=== PATIENT | female | born 1950 | race Caucasian/White ===

== ENCOUNTER 2021-12-20 05:06 | Inpatient (IN) ==
--- NOTE | 2021-11-18 16:16 | PAT Medication Instructions ---
Medication Instructions Date of Service November 18, 2021 Home Medications buspirone 15 mg tablet 15 mg PO BID gabapentin 300 mg capsule 600 mg PO QAM lisinopril 10 mg tablet 10 mg PO HS pantoprazole 40 mg granules delayed-release for susp in packet 40 mg PO HS pravastatin 20 mg tablet 20 mg PO HS sertraline 100 mg tablet 100 mg PO QAM buprenorphine 7.5 mcg/hour weekly transdermal patch (Butrans) 1 patch TRANSDERMAL WK calcium carbonate 300 mg (750 mg) chewable tablet (Tums) 300 mg PO DAILY PRN celecoxib 100 mg capsule 100 mg PO QAM cholecalciferol (vitamin D3) 125 mcg (5,000 unit) tablet (Vitamin D3) 125 mcg PO HS ergocalciferol (vitamin D2) 50,000 unit tablet 50,000 unit PO WK gabapentin 300 mg capsule 900 mg PO HS multivitamin 1 tab PO HS turmeric root extract 500 mg capsule 500 mg PO HS vitamin B complex 1 tab PO HS zinc 50 mg tablet 50 mg PO HS Continue as directed buprenorphine 7.5 mcg/hour weekly transdermal patch (Butrans) 1 patch TRANSDERMAL WK (do not put on or near surgical site and check with prescribing provider that okay to continue) ergocalciferol (vitamin D2) 50,000 unit tablet 50,000 unit PO WK (do not take day of surgery) ASK your surgeon for instructions celecoxib 100 mg capsule 100 mg PO QAM STOP taking 2 weeks before surgery turmeric root extract 500 mg capsule 500 mg PO HS DO NOT take the morning of surgery calcium carbonate 300 mg (750 mg) chewable tablet (Tums) 300 mg PO DAILY PRN vitamin B complex 1 tab PO HS zinc 50 mg tablet 50 mg PO HS Take morning of surgery With a small sip of water, OTHERWISE NOTHING TO EAT OR DRINK AFTER MIDNIGHT: buspirone 15 mg tablet 15 mg PO BID gabapentin 300 mg capsule 600 mg PO QAM sertraline 100 mg tablet 100 mg PO QAM Take evening before surgery buspirone 15 mg tablet 15 mg PO BID lisinopril 10 mg tablet 10 mg PO HS pantoprazole 40 mg granules delayed-release for susp in packet 40 mg PO HS pravastatin 20 mg tablet 20 mg PO HS cholecalciferol (vitamin D3) 125 mcg (5,000 unit) tablet (Vitamin D3) 125 mcg PO HS gabapentin 300 mg capsule 900 mg PO HS multivitamin 1 tab PO HS Other Notes If you have any questions please call us at [phone] or [phone] or [phone] or [phone]
--- NOTE | 2021-11-19 09:54 | Anesthesiology Consultation ---
Date of Service November 19, 2021 Assessment & Plan (1) Encounter for pre-operative examination: - COVID screening: Per assessment on 11/18: No known COVID-19 positive contacts or current COVID-19 related symptoms. Travel screen negative. Patient vaccinate d. Surgeon arranging preop COVID testing. Awaiting results. - Medication instructions: Patient uses Butrans (buprenorphine) patch. Patient states she will discuss with PCP if continuing or holding prior to surgery. She states she will inform anesthesiologist AM MOLLY regarding ultimate decision. Chart Review Chart Review: Acceptable Risk for Surgery and Patient seen in Pre Admission Testing Teaching & Discussion Pre-Anesthesia Teaching/Discussion Notes: Instructed NPO after midnight before surgery,except medications with 15 cc of water. Medication instructions provided according to the PAT guidelines. History Surgery Operation Date: 12/20/21 07:00 Proposed Procedures p Right Total Hip Arthroplasty Anterior - Jj Briceno, Height/Weight Height: 5 ft 6 in Weight: 97.2 kg Allergies Allergy/AdvReac Type Severity Reaction Status Date / Time No Known Allergies Allergy Verified 11/18/21 10:32 Medications Home Medications Medication Instructions Recorded Confirmed Last Taken buspirone 15 mg tablet 15 mg PO BID 11/17/21 11/18/21 Unknown gabapentin 300 mg capsule 600 mg PO QAM 11/17/21 11/18/21 Unknown lisinopril 10 mg tablet 10 mg PO HS 11/17/21 11/18/21 Unknown pantoprazole 40 mg granules 40 mg PO HS 11/17/21 11/18/21 Unknown delayed-release for susp in packet pravastatin 20 mg tablet 20 mg PO HS 11/17/21 11/18/21 Unknown sertraline 100 mg tablet 100 mg PO QAM 11/17/21 11/18/21 Unknown buprenorphine 7.5 mcg/hour weekly 1 patch TRANSDERMAL WK 11/18/21 11/18/21 Unknown transdermal patch (Butrans) calcium carbonate 300 mg (750 mg) 300 mg PO DAILY PRN 11/18/21 11/18/21 Unknown chewable tablet (Tums) celecoxib 100 mg capsule 100 mg PO QAM 11/18/21 11/18/21 Unknown cholecalciferol (vitamin D3) 125 125 mcg PO HS 11/18/21 11/18/21 Unknown mcg (5,000 unit) tablet (Vitamin D3) ergocalciferol (vitamin D2) 50,000 50,000 unit PO WK 11/18/21 11/18/21 Unknown unit tablet gabapentin 300 mg capsule 900 mg PO HS 11/18/21 11/18/21 Unknown multivitamin 1 tab PO HS 11/18/21 11/18/21 Unknown turmeric root extract 500 mg 500 mg PO HS 11/18/21 11/18/21 Unknown capsule vitamin B complex 1 tab PO HS 11/18/21 11/18/21 Unknown zinc 50 mg tablet 50 mg PO HS 11/18/21 11/18/21 Unknown Past Medical History Medical History Acid reflux Depression Severe (since daughter's ) History of basal cell carcinoma (BCC) of skin Face Osteoarthritis Thyroid nodule Tremor of both hands Exercise / Class Metabolic Activity III < 4 Walking/Shop/Light housework Past Family History Family History Other No family history of adverse response to anesthesia Past Surgical History Surgical History History of basal cell carcinoma excision History of carpal tunnel surgery of left wrist History of tonsillectomy S/P thyroid biopsy Past Anesthesia History No Hx of Anesthesia Complications and No Family Hx of Anesthesia Complications History of PONV No Hx of PONV and Hx of Motion Sickness Social History Smoking Status: Never smoker Do You Dip or Chew Tobacco: No Hx Alcohol Use: Yes Alcohol type: beer alcohol intake frequency: holidays/special occasions only Hx Substance Use: No substance use type: does not use Review of Systems Patient denies chest pain, shortness of breath, fever, chills, cough, wheezing, palpitations. Physical Exam Vital Signs VITALS BP 124/77 P 52 TEMP 98.3 SP02 97%RA RESP 16 PHYSICAL Full cervical extension range of motion. Full TMJ range of motion. TMD 4 finger breaths Mallampati Score 2 Dentition: intact, upper left side crown Lungs: clear throughout to auscultation Cardiac: regular rate and rhythm, no murmurs noted Spine: normal Carotid arteries: negative bruit Extremities: no edema Short neck Lab Results Anesthesia Preop Results Results Anesthesia Widget: WBC 6.98 K/uL (4.8-10.8) 11/19/21 Hgb 11.9 g/dL (12.0-16.0) L 11/19/21 Hct 37.3 % (37-47) 11/19/21 Plt 255 K/uL (130-400) 11/19/21 Na 139 mmol/L (136-145) 11/19/21 K 4.5 mmol/L (3.5-5.1) 11/19/21 Cl 103 mmol/L (98-107) 11/19/21 CO2 30 mmol/L (21-32) 11/19/21 BUN 15 mg/dl (6-23) 11/19/21 Creat 0.57 mg/dl (0.6-1.2) L 11/19/21 Glucose Level 98 mg/dl (70-99(Fasting)) 11/19/21 PT 10.9 Seconds (9.0-12.0) 11/19/21 PTT 27.5 Seconds (21.0-31.0) 11/19/21 INR 1.0 (0.9-1.1) 11/19/21 Blood Type O Positive 11/19/21 Antibody Screen NEGATIVE 11/19/21 Testing Electrocardiogram Date: 11/19/21 SB with sinus arrhythmia at 48bpm. unconfirmed report. Chest X-Ray Date: 11/19/21 FINDINGS: The cardiac silhouette is mildly enlarged. The lungs are clear. No pleural effusions. No pneumothorax. Mild to moderate degenerative changes within the thoracic spine. IMPRESSION: Mild cardiomegaly.
--- NOTE | 2021-12-16 12:19 | History & Physical Report ---
Date of Service December 16, 2021 Assessment & Plan (1) Osteoarthritis of right hip: We will proceed with a right anterior total of arthroplasty. Postoperatively she will be started on aspirin for DVT prophylaxis and kept overnight in the hospital for postoperative medical management. She plans to have the hospital set up home health and [facility] upon discharge. History of Present Illness Chief Complaint: Osteoarthritis of the right hip. Primary Care Provider: Vince Cuadra is a pleasant 71-year-old female who has been dealing with 18-month history of increasing right hip and groin pain. She was downgraded to a cane and now she is ambulating some with the wheelchair due to her hip pain. It is affecting her quality of life. She cannot even sit without having pain in her hip. She is taking anti-inflammatories and had done activity modifications. She is really struggling with right hip.X-rays have been diagnostic for adva nced osteoarthritis of the right hip. After failing conservative treatment, she has elected proceed with a right total hip arthroplasty.. Allergies Allergy/AdvReac Type Severity Reaction Status Date / Time No Known Allergies Allergy Verified 11/18/21 10:32 Home Medications Medication Instructions Recorded Confirmed Type buspirone 15 mg tablet 15 mg PO BID 11/17/21 11/18/21 History gabapentin 300 mg capsule 600 mg PO QAM 11/17/21 11/18/21 History lisinopril 10 mg tablet 10 mg PO HS 11/17/21 11/18/21 History pantoprazole 40 mg granules 40 mg PO HS 11/17/21 11/18/21 History delayed-release for susp in packet pravastatin 20 mg tablet 20 mg PO HS 11/17/21 11/18/21 History sertraline 100 mg tablet 100 mg PO QAM 11/17/21 11/18/21 History buprenorphine 7.5 mcg/hour weekly 1 patch TRANSDERMAL WK 11/18/21 11/18/21 History transdermal patch (Butrans) calcium carbonate 300 mg (750 mg) 300 mg PO DAILY PRN 11/18/21 11/18/21 History chewable tablet (Tums) celecoxib 100 mg capsule 100 mg PO QAM 11/18/21 11/18/21 History cholecalciferol (vitamin D3) 125 125 mcg PO HS 11/18/21 11/18/21 History mcg (5,000 unit) tablet (Vitamin D3) ergocalciferol (vitamin D2) 50,000 50,000 unit PO WK 11/18/21 11/18/21 History unit tablet gabapentin 300 mg capsule 900 mg PO HS 11/18/21 11/18/21 History multivitamin 1 tab PO HS 11/18/21 11/18/21 History turmeric root extract 500 mg 500 mg PO HS 11/18/21 11/18/21 History capsule vitamin B complex 1 tab PO HS 11/18/21 11/18/21 History zinc 50 mg tablet 50 mg PO HS 11/18/21 11/18/21 History Past Med/Surg History Medical History Acid reflux Depression Severe (since daughter's ) History of basal cell carcinoma (BCC) of skin Face Osteoarthritis Thyroid nodule Tremor of both hands Surgical History History of basal cell carcinoma excision History of carpal tunnel surgery of left wrist History of tonsillectomy S/P thyroid biopsy Family History Other No family history of adverse response to anesthesia Social History Smoking Status: Never smoker Second Hand Exposure: No; Hx Alcohol Use: Yes Alcohol type: beer Hx Substance Use: No Preferred Language: Vietnamese Communication Ability: Effective 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 Physical Exam On physical examination of the right hip, she has trouble lying flat. She has extremely limited range of motion of her right hip. She has pain with forced internal and external rotation. Constitutional WD/WN, vitals as above Eyes PERRL, conjunctivae normal, anicteric sclerae ENMT external ear and nose normal, oropharynx normal Neck trachea midline, no thyromegaly Respiratory normal respiratory effort Cardiovascular RRR, no murmur, no edema Gastrointestinal (Abdomen) normal bowel sounds, soft, nontender, no hepatosplenomegaly Psychiatric A+Ox3, euthymic affect Results & Data Results & Data Laboratory Results . Diagnostic Findings X-rays of the right hip and pelvis show advanced osteoarthritis with joint space narrowing, osteophyte formation, and [id number] articulation.. PG Care Time/CCT Total # of Minutes Spent Total Time Spent with Patient: Total time spent is greater than 50% in coordination of care (as documented) at patient's floor/unit and/or counseling patient: Coding Level of Care Code None Diagnoses Osteoarthritis of right hip M16.11
[2021-12-20] MEDS ORDERED: TRANEXAMIC ACID 1,000 MG **IV Intra-op IV SCH (06:00)
[2021-12-20] MEDS ORDERED: ceFAZolin 2000MG 2,000 MG/15 ML SYR IV SCH (06:00)
[2021-12-20] MEDS ORDERED: FAMOTIDINE 20 MG TAB PO SCH (06:00)
[2021-12-20] MEDS ORDERED: GABAPENTIN 300 MG CAP PO SCH (06:00)
[2021-12-20] MEDS ORDERED: LR 500ML BOLUS, THEN 15ML/HR IV SCH (06:00)
[2021-12-20] MEDS ORDERED: ACETAMINOPHEN 500 MG TAB PO SCH (06:00)
[2021-12-20] MEDS ORDERED: CeleBREX 200 MG CAP PO SCH (06:00)
[2021-12-20] MEDS ORDERED: TRANEXAMIC ACID 1,000 MG **IV Pre-op IV SCH (06:00)
[2021-12-20] MEDS ORDERED: METOCLOPRAMIDE HCL 10 MG TABLET PO SCH (06:00)
[2021-12-20] MEDS ORDERED: LR 60ML/HR IV SCH (06:00)
[2021-12-20] MEDS ORDERED: Ketorolac (*for OR use only*) 30 MG, dexAMETHasone 4 MG, KETAMINE HCL (**OR use only) 1... INFIL SCH (06:00)
[2021-12-20] MEDS ORDERED: BUPIVACAINE 0.5 % 5 MG/1 ML PF 10ML VIAL ONE (06:22)
[2021-12-20] MEDS ORDERED: ORTHO JOINT ANESTHETIC ONE (06:33)
[2021-12-20] MEDS ORDERED: MIDAZOLAM HCL 1 MG/ML 2ML VIAL ONE ×3 (06:41→08:01)
[2021-12-20] MEDS ORDERED: LIDOCAINE 2% 2 ML VIAL/AMP(20MG/ML) INFIL ONE (06:41)
[2021-12-20] MEDS ORDERED: PROPOFOL IV EMULSION 10 MG/ML 20 ML VIAL IV ONE (06:41)
--- NOTE | 2021-12-20 06:50 | History & Physical Bridge Note ---
Date of Service December 20, 2021 History & Physical Bridge Note I have examined the patient, reviewed the History & Physical and in the interval since the performance of the History & Physical I have noted the following changes of clinical significance: no changes noted
[2021-12-20] MEDS ORDERED: ONDANSETRON INJ 2 MG/ML 2 ML VIAL IV PRN ×2 (06:56→09:31)
[2021-12-20] MEDS ORDERED: PROMETHAZINE HCL 6.25 MG in SODIUM CHLORIDE 0.9% 50 ML IV PRN (06:56)
[2021-12-20] MEDS ORDERED: PHENYLEPHRINE 100MCG/ML 5ML SYR IV PRN (06:56)
[2021-12-20] MEDS ORDERED: ATROPINE SULFATE 0.1 MG/ML 10ML SYR IV PRN (06:56)
[2021-12-20] MEDS ORDERED: HYDROmorphone INJ 1 MG/ML SYRINGE IV PRN (06:56)
[2021-12-20] MEDS ORDERED: ePHEDrine sulfate 50 MG/ML AMP IV PRN (06:56)
[2021-12-20] MEDS ORDERED: fentaNYL citrate 100 MCG/2 ML VIAL ONE (07:20)
[2021-12-20] MEDS ORDERED: KETAMINE 50 MG/5 ML SYRINGE ONE (07:34)
--- NOTE | 2021-12-20 08:28 | Operative Report ---
PG Post Operative Report Pre & Post Diagnosis Operation Date: 12/20/21 07:00 Pre-Op Diagnosis: Right Hip Osteoarthritis Post-Op Diagnosis: Right Hip Osteoarthritis I identified the patient and participated in the time-out.: Yes Procedure Operation Date: 12/20/21 07:00 Actual Procedures p Right Total Hip Arthroplasty Anterior--Uncemented(Right) - Jj Briceno DO Surgeon Jj Briceno DO Critical Care Physician Assistant Jj Dumont PAC Estimated Blood Loss 200 Findings Consistent with Post-Op Diagnosis Specimens Right femoral head Complications none Disposition Disposition: Recovery Room Indications Kaur is a pleasant 71-year-old female who is been doing chronic increasing right hip and groin pain. X-rays and clinical examination are diagnostic for advanced arthritis of the right hip. After failing conservative treatment, she elected to proceed with a right total hip arthroplasty. Description of Procedure Implants used I used a [employer]immer[employer]omet total hip arthroplasty system with a size 4 standard offs et Avenir Complete stem, a 48mm G7 cup with a 25mm screw, an E1 polyethylene liner, a 32 mm ceramic head with a +7 neck. Kaur arrived at the hospital for the above procedure. She was seen in the preoperative holding area and the operative extremity was identified and signed. She was given a spinal anesthetic, a preoperative antibiotic, and TXA. She was then taken back to the operating room and laid on the table in the supine position. She was given basic sedation. The operative leg was secured to a Puristst leg positioner. The hip was then prepped and draped in sterile fashion. A timeout was done and the patient and the operative extremity was properly identified. An anterior approach was used. Dissection was taken down through the fascia and the tensor muscle belly was retracted laterally and the rectus was retracted medially. The circumflex vessels were identified and ligated. The capsule was then incised and tagged for later repair. The femoral neck was then cut and the femoral head was removed. The acetabulum was exposed. Time was spent doing a complete circumferential labral release. Sequential reaming of the acetabulum up to a size 47 reamer was done. Final reamings were done under fluoroscopy to ensure appropriate version. A Biomet 48mm G7 cup was then impacted into place. A single 25 mm screw was placed. The E1 polyethylene liner was then snapped i nto place. Surrounding soft tissues were then injected with 100 cc of an orthopedic pain control cocktail. The proximal femur was then exposed. Sequential broaching up to a size 4 broach was done. Off that broach a size 32 head with a +7 neck was trialed. The hip was reduced and fluoroscopic images showed anatomic alignment of the implants in acceptable length. The broach was removed. The final size 4 standard offset Avenir Complete stem was then impacted into place. A ceramic 32mm head with a +7 neck was then impacted onto the stem and the hip was reduced. Final fluoroscopic images showed anatomic alignment of the hip. The capsule was then closed with #1 Vicryl suture. A dilute betadyne lavage was then done for 3 minutes. The joint was then irrigated with normal saline solution. The fascia was closed with #1 PDS suture. Skin was closed with 2-0 Vicryl, luis e, and a Silverlon dressing. She was then transferred to a hospital bed and taken to the post anesthesia care unit in stable condition. She tolerated the procedure well. Jj Dumont PA-C, was present for the entire procedure. He was critical for patient positioning, prepping, draping, retraction exposure, wound closure and application of sterile dressing. I attest to the content of the Intraoperative Record and any orders documented therein. Any exceptions are noted below.
--- NOTE | 2021-12-20 09:05 | Fluoroscopy Report ---
FL hip RT 1V HISTORY: 71 years-old Female RT ANTERIOR TOTAL right hip total joint arthroplasty COMPARISON: 10/05/2021 TECHNIQUE: 2 spot fluoroscopic images of the right hip were obtained utilizing 27.0 seconds of fluoro scopy time FINDINGS: Right hip total joint arthroplasty demonstrates satisfactory alignment. No acute fracture identified. Expected postoperative soft tissue swelling with deep tissue air. No unexpected opaque foreign kraig s are identified. IMPRESSION: Right hip total joint arthroplasty with expected postoperative changes. ACT 112: Negative or not required by law. The above report was generated using voice recognition software. It may contain grammatical, syntax o r spelling errors. Electronically signed by: Ezequiel Roberts M.D. 12/20/2021 9:04 AM
--- NOTE | 2021-12-20 09:27 | XRay Report ---
XR hip 1V RT w pelvis HISTORY: 71 years-old Female IN PACU - A/P PELVIS and LATERAL HIP right hip total joint arthroplast y COMPARISON: Fluoroscopic images of the right hip of same day TECHNIQUE: AP view of the pelvis with crosstable lateral view of the right hip FINDINGS: Satisfactory alignment of the right hip total joint arthroplasty. No acute fracture or unexpected opa que foreign body identified. Overlying skin luis e are noted along with expected postoperative soft tissue swelling and deep tissue air. Mild to moderate left hip osteoarthritis. IMPRESSION: Right hip total joint arthroplasty with expected postoperative changes. ACT 112: Negative or not required by law. The above report was generated using voice recognition software. It may contain grammatical, syntax o r spelling errors. Electronically signed by: Ezequiel Roberts M.D. 12/20/2021 9:26 AM
[2021-12-20] MEDS ORDERED: bisacodyL 10 MG SUPP PR PRN (09:31)
[2021-12-20] MEDS ORDERED: HYDROmorphone INJ 0.5 MG/0.5 ML SYR IV PRN (09:31)
[2021-12-20] MEDS ORDERED: MAGNESIUM HYDROXIDE SUSP 30 ML UDC PO PRN (09:31)
[2021-12-20] MEDS ORDERED: METOCLOPRAMIDE HCL INJ 5 MG/ML 2 ML VIAL IV PRN (09:31)
[2021-12-20] MEDS ORDERED: NALOXONE HCL 0.4 MG/1 ML VIAL/CARP IV PRN (09:31)
[2021-12-20] MEDS: SODIUM CHLORIDE 0.9% 1000ML 1,000 ML IV SCH ×2 (10:08→19:51)
--- NOTE | 2021-12-20 11:21 | Anesthesiology Progress Note ---
Date of Service December 20, 2021 Anesthesia Post Procedure Vital Signs Vital Signs: Temp Pulse Pulse Resp BP Pulse Ox 12/20/21 10:33 37.3 C 52 L 16 109/71 94 12/20/21 10:00 36.4 C L 48 L 17 106/71 93 12/20/21 09:30 36.4 C L 49 L 17 100/57 L 99 12/20/21 09:10 36.3 C L 56 L 14 129/58 L 98 12/20/21 09:00 56 L 14 102/68 100 12/20/21 08:50 68 18 110/61 100 12/20/21 08:44 36.1 C L 77 18 104/65 100 12/20/21 05:50 37.5 C 66 20 160/85 H 20 L Pain Intensity Right Hip: Pain Intensity: 7 Transfer of Care Handoff Completed per policy Notes Mental Status: alert / awake / arousable Patient Amnestic to Procedure: Yes Nausea / Vomiting: adequately controlled Pain: adequately controlled Airway Patency, RR, SpO2: stable & adequate BP & HR: stable & adequate Hydration State: stable & adequate Neuraxial Anesthesia: was administered and sensory block is resolving Anesthetic Complications: no major complications apparent
[2021-12-20] MEDS ORDERED: BUPRENORPHINE 5 MCG/HR TDSY TD SCH (11:30)
[2021-12-20] MEDS ORDERED: dexAMETHasone 4 MG TAB PO ONE (11:30)
[2021-12-20] MEDS: KETOROLAC TROMETHAMINE 15 MG/ML VIAL IV SCH ×3 (11:59→21:48)
[2021-12-20] MEDS: busPIRone 15 MG TAB PO SCH ×2 (12:24→20:02)
[2021-12-20] MEDS: SERTRALINE HCL 100 MG TABLET PO SCH (12:24)
[2021-12-20] MEDS: DOCUSATE SODIUM 100 MG CAP PO SCH ×2 (12:24→20:02)
[2021-12-20] MEDS: ASPIRIN 81 MG ECTAB PO SCH ×2 (12:24→20:02)
[2021-12-20] MEDS: MULTIVITAMIN TAB PO SCH (12:24)
[2021-12-20] MEDS: ACETAMINOPHEN 500 MG TAB PO SCH ×2 (14:36→22:24)
[2021-12-20] MEDS ORDERED: [UNRECOGNIZED DRUG - REMARK] SCH (16:00)
[2021-12-20] MEDS: ceFAZolin 2000MG 2,000 MG/15 ML SYR IV SCH ×2 (16:00→22:25)
[2021-12-20] MEDS: lisinopril 10 MG TAB PO SCH (20:03)
[2021-12-20] MEDS: GABAPENTIN 300 MG CAP PO SCH (20:03)
[2021-12-20] MEDS: PRAVASTATIN SOD 20 MG TAB PO SCH (20:04)
[2021-12-20] MEDS: SENNA 8.6 MG TAB PO SCH (20:04)
[2021-12-21] MEDS: KETOROLAC TROMETHAMINE 15 MG/ML VIAL IV SCH ×4 (03:20→21:39)
[2021-12-21] MEDS: ACETAMINOPHEN 500 MG TAB PO SCH ×3 (05:53→22:54)
[2021-12-21] MEDS: SODIUM CHLORIDE 0.9% 1000ML 1,000 ML IV SCH (06:23)
--- NOTE | 2021-12-21 06:28 | Orthopedic Progress Note ---
Date of Service December 21, 2021 Assessment & Plan (1) Status post right hip replacement: Overall she is doing very well. She is not having too much pain in the right hip. She is on aspirin for DVT prophylaxis. She will be seen by physical therapy today for ambulation and range of motion exercises. We will keep her in the hospital today for pain control and strengthening. We will plan to discharge her to home tomorrow. Harriet Dietrich was seen and examined at bedside this morning. Overall she is doing very well. She is not having too much pain in the right hip. She has been up and ambulating to the bathroom. She has no complaints.. Review of Systems All systems reviewed & are unremarkable except as noted in HPI & below. Physical Exam On physical examination of the right hip, the dressing is clean and dry. Her leg lengths are equal. She has active dorsiflexion plantarflexion of her right ankle.. Results & Data Results & Data Laboratory Results . Diagnostic Findings Postoperative x-rays of the right hip show the prosthesis to be in anatomic alignment without any evidence of fracture, desiccation, or loosening. PG Care Time/CCT Total # of Minutes Spent Total Time Spent with Patient: Total time spent is greater than 50% in coordination of care (as documented) at patient's floor/unit and/or counseling patient: Coding Level of Care Code 21356 Post Operative Follow-Up Diagnoses Status post right hip replacement Z96.641
[2021-12-21] MEDS: MULTIVITAMIN TAB PO SCH (08:28)
[2021-12-21] MEDS: SERTRALINE HCL 100 MG TABLET PO SCH (08:28)
[2021-12-21] MEDS: ASPIRIN 81 MG ECTAB PO SCH ×2 (08:29→20:29)
[2021-12-21] MEDS: GABAPENTIN 300 MG CAP PO SCH ×2 (08:29→20:29)
[2021-12-21] MEDS: DOCUSATE SODIUM 100 MG CAP PO SCH ×2 (08:29→20:29)
[2021-12-21] MEDS: busPIRone 15 MG TAB PO SCH ×2 (08:29→20:29)
[2021-12-21] MEDS: oxyCODONE HCL IR 5 MG TAB (IMMEDIATE RELEASE) PO PRN (19:29)
[2021-12-21] MEDS: SENNA 8.6 MG TAB PO SCH (20:29)
[2021-12-21] MEDS: lisinopril 10 MG TAB PO SCH (20:29)
[2021-12-21] MEDS: PRAVASTATIN SOD 20 MG TAB PO SCH (20:29)
[2021-12-22] MEDS: KETOROLAC TROMETHAMINE 15 MG/ML VIAL IV SCH (03:41)
[2021-12-22] MEDS: ACETAMINOPHEN 500 MG TAB PO SCH ×3 (05:52→21:24)
--- NOTE | 2021-12-22 06:30 | Orthopedic Progress Note ---
Date of Service December 22, 2021 Assessment & Plan (1) Status post right hip replacement: Overall she is doing fairly well. She is having too much pain in the right hip. She will be seen by physical therapy again today for ambulation and range of motion exercises. She is on aspirin for DVT prophylaxis. She can be discharged home later today. She will follow-up with orthopedics in 2 weeks. Harriet Dietrich was seen and examined at bedside this morning. Overall she is doing fairly well. She worked well yesterday with physical therapy. She has a little bit of soreness in her hip but is not too bad. She has no other complaints. . Review of Systems All systems reviewed & are unremarkable except as noted in HPI & below. Physical Exam On physical examination of the right hip, the dressing is mostly clean and dry. Her ligaments are equal. She has some swelling around the right hip that is to be expected. . Results & Data Results & Data Laboratory Results . Diagnostic Findings . PG Care Time/CCT Total # of Minutes Spent Total Time Spent with Patient: Total time spent is greater than 50% in coordination of care (as documented) at patient's floor/unit and/or counseling patient: Coding Level of Care Code 77489 Post Operative Follow-Up Diagnoses Status post right hip replacement Z96.641
--- NOTE | 2021-12-22 06:33 | Discharge Summary ---
Date of Service December 22, 2021 Admission HPI (Per Admitting) Venecia is a pleasant 71-year-old female who has been dealing with 18-month history of increasing right hip and groin pain. She was downgraded to a cane and now she is ambulating some with the wheelchair due to her hip pain. It is affecting her quality of life. She cannot even sit without having pain in her hip. She is taking anti-inflammatories and had done activity modifications. She is really struggling with right hip.X-rays have been diagnostic for advanced osteoarthritis of the right hip. After failing conservative treatment, she has elected proceed with a right total hip arthroplasty.. Admission Exam (Per Admitting) On physical examination of the right hip, she has trouble lying flat. She has extremely limited range of motion of her right hip. She has pain with forced internal and external rotation. Principal Diagnosis Same as "Discharge Diagnosis" noted below under Discharge Instructions. Discharge Exam On physical examination of the right hip, the dressing is mostly clean and dry. Her ligaments are equal. She has some swelling around the right hip that is to be expected. . Discharge Data Procedures Performed Operation Date: 12/20/21 07:00 Actual Procedures p Right Total Hip Arthroplasty Anterior--Uncemented(Right) - Jj Briceno DO Ordered Studies 12/20/21 07:00 FL hip RT 1V Routine Hospital Course (1) Status post right hip replacement: On December 20, 2021 Kaur arrived at [facility] and underwent a right hip replacement without complication. She had a spinal anesthetic. Postoperatively she was started on aspirin for DVT prophylaxis and transferred to the general orthopedic floors. Her hospital course was uneventful. On postop day #1, her vital signs were stable and her pain was well controlled. She was able to participate well with physical therapy doing ambulation and range of motion exercises. On postop day #2, she continued to do well. She was seen once again by physical therapy. She was then discharged home. She will follow-up with orthopedics in 2 weeks. PG Care Time/CCT Total # of Minutes Spent Total Time Spent with Patient: Total time spent is greater than 50% in coordination of care (as documented) at patient's floor/unit and/or counseling patient: Discharge Plan Discharge Items Patient Disposition: Home - Home Health Services Reason For Visit: Right Hip Degenerative Joint Disease Discharge Diagnosis: Right hip replacement Activity: Per Instructions section Non-emergency contact: Surgeon Call non-emergency contact if: your wound has increased redness and your wound has increased drainage Follow-up/Referrals: Vince Lynch DO [Primary Care Provider] - Diet: Regular Addtl Attending Provider Instructions: Activity and Therapy Recommendations: * If you are using [facility] then therapy will be provided at your home until they feel you have accomplished all of your goals. * If you are using [facility] then Physical Therapy will be provided until they feel you are ready to start Outpatient Physical Therapy. * If you are not using home therapy then Outpatient Physical Therapy should start about 3-5 days from your day of surgery. Therapy will last about 6-10 weeks * You were shown a series of exercises in the hospital. Do these exercises three times each day including the exercises you were shown in physical therapy. * Get up and walk several times each day.~ For the first four weeks, try not to stand or walk for more than one hour at a time. If you do stand or walk for m ore than one hour, you will not hurt anything, but your leg will likely swell.~~ * As you feel comfortable, you may change from the walker or crutches to a cane and~then to independent walking. Medications: * Narcotic You will likely be sent home from the hospital with a prescription for the narcotic pain medication that worked best throughout your stay. * Aspirin Most patients will be required to take Aspirin 81mg twice a day for 6 weeks after surgery. This is obtained [id number] and a prescription is not necessary. * Other medications may be prescribed for specific circumstances. If you have any questions, please call the office at . * Resume previous home medications unless otherwise instructed TEDs/Elastic Stockings: The white elastic stockings help limit swelling and prevent blood clots from forming in your legs. The more you wear them, the more they work. Wear them for six weeks. Dressing Care: Leave the Silverlon dressing in place for 7 days. After 7 days you may remove the dressing. If the incision is not draining then you may leave the luis e open to air. If there is a little bit of drainage or if the luis e are getting stuck on your clothing then cover the incision with a dry dressing. The luis e will be removed at your 2 week follow-up appointment. Showering: You may shower with the Silverlon dressing in place. Do not let the shower spray hit the dressing directly. Pat the Silverlon dressing dry. If the dressing becomes wet underneath, then simply remove the dressing. Keep the incision dry until you are 7 days out from the day of surgery. After 7 days you may remove the Silverlon dressing and shower with the luis e exposed. Let soapy water run over the luis e and pat them dry. Do not scrub or soak the incision. Things To Watch For: * Drainage from the incision site that occurs more than one week after your surgery. * Increased redness at the incision site. * Fever above 102 degrees Fahrenheit. * Unusual chest pain or shortness of breath. * Call [facility] at with any of the above problems Follow-Up Visit: Follow-up with Dr. Briceno's PA (Jj Dumont) 2-3 weeks after your day of surgery. He will remove your luis e and answer any questions. If you have any additional questions or concerns, Dr Briceno is usually in the office at the same time and will be available An appointment was probably scheduled when you signed-up for surgery in the office. If you have any questions call Office Instructions: More detailed instructions as well as Frequently Asked Questions were provided in a folder by our office when you signed-up for surgery. Please review these instructions when you get home. If you have any further questions or concerns, please feel free to call the office at [phone] Pending Studies at Discharge: No Stand-Alone Forms: My [facility] Medications and DC Order Prescriptions: New oxycodone-acetaminophen 5-325 mg tablet 1 tab PO Q6H PRN (Reason: pain) Qty: 30 RF: 0 aspirin 81 mg Tablet,Delayed Release (Dr/Ec) 81 mg PO BID 42 Days Qty: 0 RF: 0 Continued pantoprazole [address] for susp in packet 40 mg PO HS RF: 0 pravastatin 20 mg tablet 20 mg PO HS RF: 0 lisinopril 10 mg tablet 10 mg PO HS RF: 0 sertraline 100 mg tablet 100 mg PO QAM RF: 0 buspirone 15 mg tablet 15 mg PO BID RF: 0 gabapentin 300 mg capsule 600 mg PO QAM RF: 0 gabapentin 300 mg Capsule 900 mg PO HS RF: 0 buprenorphine [Butrans] 7.5 mcg/hour Patch Weekly 1 patch TRANSDERMAL WK RF: 0 celecoxib 100 mg Capsule 100 mg PO QAM RF: 0 multivitamin Tablet 1 tab PO HS RF: 0 vitamin B complex [Super B Complex] Tablet 1 tab PO HS RF: 0 zinc 50 mg Tablet 50 mg PO HS RF: 0 cholecalciferol (vitamin D3) [Vitamin D3] 125 mcg (5,000 unit) Tablet 125 mcg PO HS RF: 0 turmeric root extract 500 mg Capsule 500 mg PO HS RF: 0 ergocalciferol (vitamin D2) 50,000 unit Tablet 50,000 unit PO WK RF: 0 calcium carbonate [Tums] 300 mg (750 mg) Tablet,Chewable 300 mg PO DAILY PRN (Reason: Acid Reflux) RF: 0 Discharge Orders: Discharge Order (Routine); Ordered 12/22/21 Ordered By: Jj Briceno Admission Data Admit Date/Time: 12/20/21 08:45 Attending Provider: Jj Briceno Admit Provider: Jj Briceno Primary Care Provider: Vince Lynch Other Providers: [facility],Home Health
[2021-12-22] MEDS: MULTIVITAMIN TAB PO SCH (08:36)
[2021-12-22] MEDS: GABAPENTIN 300 MG CAP PO SCH ×2 (08:37→21:25)
[2021-12-22] MEDS: DOCUSATE SODIUM 100 MG CAP PO SCH ×2 (08:37→21:25)
[2021-12-22] MEDS: SERTRALINE HCL 100 MG TABLET PO SCH (08:37)
[2021-12-22] MEDS: busPIRone 15 MG TAB PO SCH ×2 (08:37→21:24)
[2021-12-22] MEDS: ASPIRIN 81 MG ECTAB PO SCH ×2 (08:37→21:25)
[2021-12-22] MEDS: oxyCODONE HCL IR 5 MG TAB (IMMEDIATE RELEASE) PO PRN ×4 (08:41→23:55)
[2021-12-22] MEDS ORDERED: ERGOCALCIFEROL 50,000 UNITS 1250 MCG CAP PO SCH (09:00)
[2021-12-22] MEDS: lisinopril 10 MG TAB PO SCH (21:24)
[2021-12-22] MEDS: SENNA 8.6 MG TAB PO SCH (21:24)
[2021-12-22] MEDS: PRAVASTATIN SOD 20 MG TAB PO SCH (21:25)
[2021-12-23] MEDS: oxyCODONE HCL IR 5 MG TAB (IMMEDIATE RELEASE) PO PRN ×5 (04:39→22:46)
[2021-12-23] MEDS: ACETAMINOPHEN 500 MG TAB PO SCH ×3 (06:04→22:46)
[2021-12-23] MEDS: GABAPENTIN 300 MG CAP PO SCH ×2 (08:43→20:43)
[2021-12-23] MEDS: DOCUSATE SODIUM 100 MG CAP PO SCH ×2 (08:43→20:43)
[2021-12-23] MEDS: SERTRALINE HCL 100 MG TABLET PO SCH (08:43)
[2021-12-23] MEDS: MULTIVITAMIN TAB PO SCH (08:43)
[2021-12-23] MEDS: busPIRone 15 MG TAB PO SCH ×2 (08:43→20:44)
[2021-12-23] MEDS: ASPIRIN 81 MG ECTAB PO SCH ×2 (08:43→20:45)
--- NOTE | 2021-12-23 13:19 | Orthopedic Progress Note ---
Date of Service December 23, 2021 Assessment & Plan (1) Status post right hip replacement: She seems to be doing fairly well with the hip. She is participating well with physical therapy. She is on aspirin for DVT prophylaxis. Unfortunate she has an unstable home life and she does not feel comfortable returning home at this time. She will be having some family help out coming tomorrow. She will feel much more comfortable going home tomorrow. I think that is reasonable. We will keep her an extra day today to make sure she is safe. Harriet Dietrich was seen and examined at bedside this morning. She is doing a little bit better today than she was yesterday. She has been working well with physical therapy. She still has pain in the hip. She is very concerned about going home. Review of Systems All systems reviewed & are unremarkable except as noted in HPI & below. Physical Exam On physical examination the right hip, the dressing is clean and dry. Her leg lengths are equal. She has active dorsiflexion plantarflexion of her right ankle.. Results & Data Results & Data Laboratory Results . Diagnostic Findings . PG Care Time/CCT Total # of Minutes Spent Total Time Spent with Patient: Total time spent is greater than 50% in coordination of care (as documented) at patient's floor/unit and/or counseling patient: Coding Level of Care Code 35043 Post Operative Follow-Up Diagnoses Status post right hip replacement Z96.641
[2021-12-23] MEDS: lisinopril 10 MG TAB PO SCH (20:43)
[2021-12-23] MEDS: SENNA 8.6 MG TAB PO SCH (20:43)
[2021-12-23] MEDS: PRAVASTATIN SOD 20 MG TAB PO SCH (20:45)
[2021-12-24] MEDS: ACETAMINOPHEN 500 MG TAB PO SCH ×2 (05:44→13:34)
[2021-12-24] MEDS: oxyCODONE HCL IR 5 MG TAB (IMMEDIATE RELEASE) PO PRN ×3 (05:44→15:38)
[2021-12-24] MEDS: SERTRALINE HCL 100 MG TABLET PO SCH (09:05)
[2021-12-24] MEDS: MULTIVITAMIN TAB PO SCH (09:05)
[2021-12-24] MEDS: DOCUSATE SODIUM 100 MG CAP PO SCH (09:05)
[2021-12-24] MEDS: ASPIRIN 81 MG ECTAB PO SCH (09:05)
[2021-12-24] MEDS: GABAPENTIN 300 MG CAP PO SCH (09:05)
[2021-12-24] MEDS: busPIRone 15 MG TAB PO SCH (09:05)
--- NOTE | 2021-12-24 15:21 | Orthopedic Progress Note ---
Date of Service December 24, 2021 Assessment & Plan (1) Status post right hip replacement: Overall she is doing much better. She is not having as much pain in the right hip. She can be discharged home today. She is on aspirin for DVT prophylaxis. Harriet Dietrich was seen and examined at bedside this morning. Overall she is doing much better. She not having as much pain in her hip. She has been working well with therapy. She like to go home today. Review of Systems All systems reviewed & are unremarkable except as noted in HPI & below. Physical Exam On physical examination the right hip, the dressing is clean and dry and her leg lengths are equal.. Results & Data Results & Data Laboratory Results . Diagnostic Findings . PG Care Time/CCT Total # of Minutes Spent Total Time Spent with Patient: Total time spent is greater than 50% in coordination of care (as documented) at patient's floor/unit and/or counseling patient: Coding Level of Care Code 60738 Post Operative Follow-Up Diagnoses Status post right hip replacement Z96.641
[2021-12-27] MEDS ORDERED: REMOVE BUTRANS PATCH SCH (11:29)
== END 2021-12-24 16:44 | disposition home health service (06) | DRG 470 ==
LOC: ASU 05:06 → 3W 05:06

== ENCOUNTER 2022-05-06 09:46 | Inpatient (IN) ==
--- NOTE | 2022-04-19 10:55 | PAT Medication Instructions ---
Medication Instructions Date of Service April 19, 2022 Home Medications Medication Instructions Recorded oxycodone-acetaminophen 5 mg-325 1 tab PO Q6H PRN pain #30 tabs 12/22/ mg tablet oxycodone-acetaminophen 5 mg-325 1 tab PO Q6H PRN pain #60 tabs 02/02/ mg tablet (Percocet) buspirone 15 mg tablet 15 mg PO QAM lisinopril 10 mg tablet 10 mg PO HS pantoprazole 40 mg granules delayed-release for susp in packet 40 mg PO HS pravastatin 20 mg tablet 20 mg PO HS sertraline 100 mg tablet 100 mg PO QAM calcium carbonate 300 mg (750 mg) chewable tablet (Tums) 300 mg PO DAILY PRN celecoxib 100 mg capsule 100 mg PO QAM multivitamin 1 tab PO HS turmeric root extract 500 mg capsule 500 mg PO HS vitamin B complex 1 tab PO HS zinc 50 mg tablet 50 mg PO HS oxycodone-acetaminophen 5 mg-325 mg tablet 1 tab PO Q6H PRN oxycodone-acetaminophen 5 mg-325 mg tablet (Percocet) 1 tab PO Q6H PRN gabapentin 300 mg tablet 300 mg PO TID ASK your surgeon for instructions celecoxib 100 mg capsule 100 mg PO QAM STOP taking 2 weeks before surgery turmeric root extract 500 mg capsule 500 mg PO HS DO NOT take the morning of surgery calcium carbonate 300 mg (750 mg) chewable tablet (Tums) 300 mg PO DAILY PRN Take morning of surgery With a small sip of water, OTHERWISE NOTHING TO EAT OR DRINK AFTER MIDNIGHT: buspirone 15 mg tablet 15 mg PO QAM sertraline 100 mg tablet 100 mg PO QAM oxycodone-acetaminophen 5 mg-325 mg tablet 1 tab PO Q6H PRN(if needed) oxycodone-acetaminophen 5 mg-325 mg tablet (Percocet) 1 tab PO Q6H PRN(if needed) gabapentin 300 mg tablet 300 mg PO TID Take evening before surgery lisinopril 10 mg tablet 10 mg PO HS pantoprazole 40 mg granules delayed-release for susp in packet 40 mg PO HS pravastatin 20 mg tablet 20 mg PO HS multivitamin 1 tab PO HS vitamin B complex 1 tab PO HS zinc 50 mg tablet 50 mg PO HS oxycodone-acetaminophen 5 mg-325 mg tablet 1 tab PO Q6H PRN(if needed) oxycodone-acetaminophen 5 mg-325 mg tablet (Percocet) 1 tab PO Q6H PRN(if needed) gabapentin 300 mg tablet 300 mg PO TID Other Notes If you have any questions please call us at [phone] or [phone] or [phone] or [phone]
--- NOTE | 2022-04-22 11:16 | Anesthesiology Consultation ---
Date of Service April 22, 2022 Assessment & Plan (1) Encounter for pre-operative examination: - COVID screening: Per assessment on 04/22: No known COVID-19 positive contacts or current COVID-19 related symptoms. Travel screen negative. Patient vaccinated. At surgeon discretion if preop Covid testing being done. - S/P Right ANDREY (12/20/21): SAB at L3-4 (x1 attempt) at [facility]. No issues noted per post-op anesthesia progress note. - Check BSG AM DOS Chart Review Chart Review: Acceptable Risk for Surgery and Patient seen in Pre Admission Testing Teaching & Discussion Pre-Anesthesia Teaching/Discussion Notes: Instructed NPO after midnight before surgery,except medications with 15 cc of water. Medication instructions provided according to the PAT guidelines. History Surgery Operation Date: 05/06/22 10:15 Proposed Procedures p L3-S1 Decompression and Fusion, Spinal Cord Monitoring - Vince Montenegro DO Height/Weight Height: 5 ft 6 in Weight: 96.8 kg Allergies Allergy/AdvReac Type Severity Reaction Status Date / Time No Known Allergies Allergy Verified 04/15/22 11:39 Medications Home Medications Medication Instructions Recorded Confirmed Last Taken buspirone 15 mg tablet 15 mg PO [facility] 11/17/21 04/15/22 12/20/21 04:45 lisinopril 10 mg tablet 10 mg PO 11/17/21 04/15/22 12/19/21 21:30 pantoprazole 40 mg granules 40 mg PO 11/17/21 04/15/22 12/19/21 21:30 delayed-release for susp in packet pravastatin 20 mg tablet 20 mg PO 11/17/21 04/15/22 12/19/21 21:30 sertraline 100 mg tablet 100 mg PO [facility] 11/17/21 04/15/22 12/20/21 04:45 calcium carbonate 300 mg (750 mg) 300 mg PO DAILY PRN Acid Reflux 11/18/21 04/15/22 Unknown chewable tablet (Tums) celecoxib 100 mg capsule 100 mg PO [facility] 11/18/21 04/15/22 12/19/21 21:30 multivitamin 1 tab PO 11/18/21 04/15/22 12/13/21 21:30 turmeric root extract 500 mg 500 mg PO 11/18/21 04/15/2222 09:00 capsule vitamin B complex 1 tab PO HS 11/18/21 04/15/22 12/13/21 21:30 zinc 50 mg tablet 50 mg PO HS 11/18/21 04/15/22 12/13/21 21:30 oxycodone-acetaminophen 5 mg-325 1 tab PO Q6H PRN pain #30 tabs 12/22/21 04/15/22 Unknown mg tablet oxycodone-acetaminophen 5 mg-325 1 tab PO Q6H PRN pain #60 tabs 02/02/22 04/15/22 Unknown mg tablet (Percocet) gabapentin 300 mg tablet 300 mg PO TID 04/15/22 04/15/22 Unknown Past Medical History Medical History Acid reflux Borderline diabetes Diet control recommended Depression Severe (since daughter's ) History of basal cell carcinoma (BCC) of skin Face Hyperlipidemia Hypertension Hypothyroidism Obesity Osteoarthritis Thyroid nodule Tremor of both hands "Nerves" Exercise / Class Metabolic Activity III < 4 Walking/Shop/Light housework Past Family History Family History Other No family history of adverse response to anesthesia Past Surgical History Surgical History History of basal cell carcinoma excision History of carpal tunnel surgery of left wrist History of right hip replacement Right ANDREY (12/20/21): SAB at L3-4 (x1 attempt) at [facility]. No issues noted per post-op anesthesia progress note. History of tonsillectomy S/P thyroid biopsy Past Anesthesia History No Hx of Anesthesia Complications and No Family Hx of Anesthesia Complications History of PONV No Hx of PONV and Hx of Motion Sickness Social History Smoking Status: Never smoker Do You Dip or Chew Tobacco: No Hx Alcohol Use: Yes Alcohol type: beer alcohol intake frequency: holidays/special occasions only Hx Substance Use: No substance use type: does not use Review of Systems Patient denies chest pain, shortness of breath, fever, chills, cough, wheezing, palpitations. Physical Exam Vital Signs VITALS BP 123/80 P 64 TEMP 98.5 SP02 95%RA RESP 16 PHYSICAL Full cervical extension range of motion. Full TMJ range of motion. TMD 3 finger breaths Mallampati Score 2 Dentition: intact, 2 caps (including upper front) Lungs: clear throughout to auscultation Cardiac: regular rate and rhythm, no murmurs noted Spine: normal Carotid arteries: negative bruit Extremities: no edema Lab Results Anesthesia Preop Results Results Anesthesia Widget: WBC 5.85 K/ul (4.8-10.8) 04/22/22 Hgb 12.1 g/dl (12.0-16.0) 04/22/22 Hct 36.3 % (34.1-44.9) 04/22/22 Plt 227 K/uL (130-400) 04/22/22 Na 139 mmol/L (136-145) 04/22/22 K 4.5 mmol/L (3.5-5.1) 04/22/22 Cl 104 mmol/L (98-107) 04/22/22 CO2 29 mmol/L (21-32) 04/22/22 BUN 15 mg/dl (6-23) 04/22/22 Creat 0.63 mg/dl (0.6-1.2) 04/22/22 Glucose Level 98 mg/dl (70-99(Fasting)) 04/22/22 PT 11.1 Seconds (9.0-12.0) 04/22/22 PTT 26.8 Seconds (21.0-31.0) 04/22/22 INR 1.0 (0.9-1.1) 04/22/22 Urine Color Yellow 04/22/22 Urine Appearance Clear (Clear) 04/22/22 Urine pH 7.0 (4.5-7.5) 04/22/22 Urine Specific [place] 1.013 (1.000-1.030) 04/22/22 Urine Protein Negative (Negative) 04/22/22 Urine Glucose (UA) Negative (Negative) 04/22/22 Urine Ketones Negative (Negative) 04/22/22 Urine Blood Negative (Negative) 04/22/22 Urine Nitrite Negative (Negative) 04/22/22 Urine Bilirubin Negative (Negative) 04/22/22 Urine Urobilinogen Negative (Negative) 04/22/22 Urine Leukocyte Esterase Negative (Negative) 04/22/22 Blood Type O Positive 04/22/22 Antibody Screen NEGATIVE 04/22/22 Testing Electrocardiogram Date: 11/19/21 SB with sinus arrhythmia at 48bpm. Otherwise normal ECG. Chest X-Ray Date: 11/19/21 FINDINGS: The cardiac silhouette is mildly enlarged. The lungs are clear. No pleural effusions. No pneumothorax. Mild to moderate degenerative changes within the thoracic spine. IMPRESSION: Mild cardiomegaly. COVID-19 Risk Screen Screening Information COVID-19 Screen Date: 04/22/22 Exposure 21 Days Family/Household +COVID Last 21 Days: No Exposure 10 Days Any COVID Exposure Last 10 Days: No Symptoms Last 10 Days Experienced COVID Sx Last 10 Days: No + COVID 0-90 Days COVID + in Last 0-90 Days: No
[~2022-05-06 09:46] MED LIST: ACETAMINOPHEN 500 MG TAB PO SCH; CeleBREX 200 MG CAP PO SCH; DEXAMETHASONE SOD INJ 4 MG/ML VIAL ONE; GABAPENTIN 300 MG CAP PO SCH; LIDOCAINE 2% MPF LOCAL 5 ML VIAL INFIL ONE; LR 15ML/HR IV SCH; MIDAZOLAM HCL 1 MG/ML 2ML VIAL ONE; PROPOFOL IV EMULSION 10 MG/ML 20 ML VIAL IV ONE; ROCURONIUM BROMIDE 10 MG/ML 5 ML VIAL IV ONE; ceFAZolin 2000MG 2,000 MG/15 ML SYR IV SCH; fentaNYL citrate 100 MCG/2 ML VIAL ONE
[2022-05-06] MEDS ORDERED: ONDANSETRON INJ 2 MG/ML 2 ML VIAL ONE (11:00)
[2022-05-06] MEDS ORDERED: ONDANSETRON INJ 2 MG/ML 2 ML VIAL IV PRN ×2 (11:32→17:54)
[2022-05-06] MEDS ORDERED: ATROPINE SULFATE 0.1 MG/ML 10ML SYR IV PRN (11:32)
[2022-05-06] MEDS ORDERED: PROMETHAZINE HCL 6.25 MG in SODIUM CHLORIDE 0.9% 50 ML IV PRN (11:32)
[2022-05-06] MEDS ORDERED: LABETALOL HCL IV 5 MG/ML 20ML IV PRN (11:32)
--- NOTE | 2022-05-06 12:18 | History & Physical Bridge Note ---
Date of Service May 06, 2022 History & Physical Bridge Note I have examined the patient, reviewed the History & Physical and in the interval since the performance of the History & Physical I have noted the following changes of clinical significance: no changes noted
--- NOTE | 2022-05-06 12:19 | History & Physical Report ---
Date of Service May 06, 2022 Assessment & Plan (1) Neurogenic claudication due to lumbar spinal stenosis: Plan: L3-S1 decompression and fusion History of Present Illness Chief Complaint: Back and bilateral leg pain Primary Care Provider: Vince Lynch This is a 71-year-old female who presents with chronic persistent back and bilateral leg pain. Failing surgical course of nonoperative care is here for surgical invention. Allergies Allergy/AdvReac Type Severity Reaction Status Date / Time No Known Allergies Allergy Verified 05/06/22 10:12 Home Medications Medication Instructions Recorded Confirmed Type buspirone 15 mg tablet 15 mg PO QA 11/17/21 05/06/22 History lisinopril 10 mg tablet 10 mg PO HS 11/17/21 05/06/22 History pantoprazole 40 mg granules 40 mg PO HS 11/17/21 05/06/22 History delayed-release for susp in packet pravastatin 20 mg tablet 20 mg PO 11/17/21 05/06/22 History sertraline 100 mg tablet (Zoloft) 100 mg PO [facility] 11/17/21 05/06/22 History calcium carbonate 300 mg (750 mg) 300 mg PO DAILY PRN Acid Reflux 11/18/21 05/06/22 History chewable tablet (Tums) celecoxib 100 mg capsule 100 mg PO QA 11/18/21 05/06/22 History multivitamin 1 tab PO HS 11/18/21 05/06/22 History turmeric root extract 500 mg 500 mg PO HS 11/18/21 05/06/22 History capsule vitamin B complex 1 tab PO HS 11/18/21 05/06/22 History zinc 50 mg tablet 50 mg PO 11/18/21 05/06/22 History oxycodone-acetaminophen 5 mg-325 1 tab PO Q6H PRN pain #60 tabs 02/02/22 05/06/22 Rx mg tablet (Percocet) gabapentin 300 mg tablet 300 mg PO TID 04/15/22 05/06/22 History Past Med/Surg History Medical History Acid reflux Borderline diabetes Diet control recommended Depression Severe (since daughter's ) History of basal cell carcinoma (BCC) of skin Face Hyperlipidemia Hypertension Hypothyroidism Obesity Osteoarthritis Thyroid nodule Tremor of both hands "Nerves" Surgical History History of basal cell carcinoma excision History of carpal tunnel surgery of left wrist History of right hip replacement Right ANDREY (12/20/21): SAB at L3-4 (x1 attempt) at [facility]. No issues noted per post-op anesthesia progress note. History of tonsillectomy S/P thyroid biopsy Family History Other No family history of adverse response to anesthesia Social History Smoking Status: Never smoker Second Hand Exposure: No; Do You Dip or Chew Tobacco: No; Tobacco Cessation Education Requested by Patient: No Hx Alcohol Use: Yes Alcohol type: beer Hx Substance Use: No Preferred Language: Vietnamese Communication Ability: Effective Lay Out Drafter Required: No Beliefs That Will Affect Care: None marital status: Unknown Current Living Situation: Family Current Living Situation Comment: LIVES W/ DAUGHTER AND GRAND CHILDREN Other Information That Helps Us Care for You: Yes (DISCUSS POSSIBLE PLACEMENT IN REHAB FACILITY @ D/C) Feels Safe at Home: Yes Safety Concerns: Feels Safe At This Time Assistive Devices: Cane and Walker Physical Exam Physical Exam: Patient is alert and oriented Heart regular rhythm Lungs clear Results & Data Results & Data ([facility]) Vital Signs (Past 12 Hours) Vital Signs Temp Pulse Resp BP Pulse Ox O2 Del Method 05/06/22 10:17 36.9 C 71 20 162/98 H 95 Room Air
[2022-05-06] MEDS ORDERED: BUPIVACAINE/EPINEPHRINE 0.25% 1:200,000 30 ML VIAL ONE (12:49)
[2022-05-06] MEDS ORDERED: ceFAZolin 330 MG/ML 1 GM VIAL ONE (12:49)
[2022-05-06] MEDS ORDERED: FLOSEAL HEMOSTATIC MATRIX 10ML TOP ONE ×2 (14:05→14:22)
[2022-05-06] MEDS ORDERED: fentaNYL citrate 100 MCG/2 ML VIAL ONE ×2 (14:33→15:12)
[2022-05-06] MEDS ORDERED: GLYCOPYRROLATE 0.2 MG/ML VIAL ONE (15:27)
[2022-05-06] MEDS ORDERED: NEOSTIGMINE METHYLSULFATE 1 MG/ML 10ML VIAL ONE (15:27)
[2022-05-06] MEDS ORDERED: PHENYLEPHRINE 100MCG/ML 5ML SYR ONE (15:27)
--- NOTE | 2022-05-06 15:36 | Operative Report ---
Post Operative Report Pre & Post Diagnosis Operation Date: 05/06/22 11:05 Pre-Op Diagnosis: Neurogenic claudication due to lumbar spinal stenosis Post-Op Diagnosis: Neurogenic claudication due to lumbar spinal stenosis I identified the patient and participated in the time-out.: Yes Procedure Operation Date: 05/06/22 11:05 Actual Procedures #1 lumbar decompression bilateral medial facetectomies and foraminotomies L3-L4, L4-5 and L5-S1 vertebra 2 posterior spinal fusion L4-L5 L5-S1. #3 placement posterior instrumentation L4-L5 L5-S1. #4 interbody fusion L4-L5 L5-S1. #5 placement of Spira 14 x 26 mm cage at L4-5 and 13 x 26 mm cage L5-S1. #6 placement locally harvested morselized autograft in the posterior gutters. #7 placement of I factor V V toss interbody space and posterior gutters. Surgeon Vince Montenegro, DO Display Director Fede Kwok Estimated Blood Loss 800 Findings See Below The patient is 5 foot 6 weighing over 97 kg with a BMI in excess of 34. This is combined with the EBL of greater than 800 cc created significant technical difficulty required deepest retractors and longer instruments. This had at least 50% increased operative time. Specimens None Indications This is a 71-year-old female who presents above-mentioned diagnosis of failed extensive course of nonoperative care she is here for surgical invention. Description of Procedure Patient was met with identified informed consent obtained. Patient was then taken to the operative suite underwent a patient placed in a prone position the Bowman table top Ab frame. All bony prominences well-padded eyes inspected to ensure no external pressure placed upon them. This point lumbar spine was prepped and draped in a normal sterile fashion. Sharp dissection with the assistance of Bovie cartilage from down to and exposing the lamina and transverse processes of L3-L4-L5 and the sacral ala bilaterally. From caudal to cephalad fashion complete laminectomy of L5 L4 partial laminectomy of L3 was performed including bilateral medial facetectomies and foraminotomies addressing severe spinal stenosis. Pedicle screws then placed in L4-L5 and S1 levels bilaterally with assistance of fluoroscopy and appropriate sized park placed. Palliative transforaminal portion left pleat discectomy of L5-S1 was performed endplates curetted to subcortical bleeding bone and a 13 x 26 mm spiral cage filled with I factor tapped in position. Then proceeded to L [address] of transforaminal approach and left complete discectomy performed endplates curetted to subcortical bleeding bone and a 14 x 26 mm spiral cage with I factor tapped in position. The rods then locked in final position bilaterally. The transverse processes of L4-L5 and sacral ala burred to subcortical bleeding bone. I factor combined with V toss and locally harvested morselized autograft was placed in the posterior gutters. 15 round JACKIE drain inserted. The incision was then closed with 1 Vicryl in the fascia 2-0 Vicryl subcutaneously and 4 Monocryl for final skin closure. Steri-Strip sterile dressings placed. Patient waken taken to PACU in stable condition. Please note spinal cord monitoring was utilized at the procedure no changes noted. Lastly Fede Kwok was present out the entire surgery and while the patient positioning complex portions of the surgery and final skin closure. I attest to the content of the Intraoperative Record and any orders documented therein. Any exceptions are noted below.
[2022-05-06] MEDS: HYDROmorphone INJ 1 MG/ML SYRINGE IV PRN ×8 (16:10→17:00)
--- NOTE | 2022-05-06 16:13 | Fluoroscopy Report ---
FL lumbar spine 2-3V CLINICAL HISTORY: DECOMPRESSION AND FUSION COMPARISON STUDY: Lumbar spine MRI March 27, 2020. FLUOROSCOPY TIME: 28 seconds. FLUOROSCOPIC IMAGES: 2 FINDINGS: Fluoroscopy was provided during discectomies with interbody spacer placement at the L4-L5 a nd L5-S1 levels. Posterior decompression is noted. There are bilateral pedicle screws at the L4, L5 a nd S1 levels. Hardware is intact. There are interconnecting rods. IMPRESSION: Fluoroscopy provided during posterior decompression and fusion, as above. ACT 112: Negative or not required by law. Electronically signed by: Molina Whitmore M.D. 05/06/2022 4:12 PM
[2022-05-06] MEDS ORDERED: ACETAMINOPHEN 1000 MG/100 ML IV IV ONE (17:10)
[2022-05-06] MEDS ORDERED: ACETAMINOPHEN 1,000 MG/100 ML VIAL IV STA (17:11)
[2022-05-06] MEDS ORDERED: ACETAMINOPHEN 1,000 MG/100 ML VIAL IV PRN (17:54)
[2022-05-06] MEDS ORDERED: ONDANSETRON 4 MG OD TAB PO PRN (17:54)
[2022-05-06] MEDS ORDERED: bisacodyL 10 MG SUPP PR PRN (17:54)
[2022-05-06] MEDS ORDERED: MAGNESIUM HYDROXIDE SUSP 30 ML UDC PO PRN (17:54)
[2022-05-06] MEDS ORDERED: diphenhydrAMINE Capsule 25 MG CAP PO PRN (17:54)
[2022-05-06] MEDS ORDERED: NALOXONE HCL 0.4 MG/1 ML VIAL/CARP IV PRN (17:54)
[2022-05-06] MEDS ORDERED: METOCLOPRAMIDE HCL INJ 5 MG/ML 2 ML VIAL IV PRN (17:54)
[2022-05-06] MEDS ORDERED: SOD PHOSPHATE/SOD BIPHOSPHATE ENEMA 132 ML BTL PR PRN (17:54)
[2022-05-06] MEDS ORDERED: ALUMINUM/MAGNESIUM SUSP 30 ML UDC PO PRN (17:54)
[2022-05-06] MEDS ORDERED: FAMOTIDINE 20 MG TAB PO PRN (17:54)
[2022-05-06] MEDS ORDERED: LORazepam 0.5 MG in SYRINGE 0 ML IV PRN (17:54)
[2022-05-06] MEDS ORDERED: hydrOXYzine HCl 25 MG TAB PO PRN (17:54)
[2022-05-06] MEDS ORDERED: HYDROmorphone INJ 0.5 MG/0.5 ML SYR IV PRN (17:54)
[2022-05-06] MEDS ORDERED: HYDROmorphone INJ 1 MG/ML SYRINGE IV PRN (17:54)
[2022-05-06] MEDS ORDERED: ACETAMINOPHEN 500 MG TAB PO PRN (17:54)
[2022-05-06] MEDS ORDERED: PROMETHAZINE HCL 12.5 MG in SODIUM CHLORIDE 0.9% 50 ML IV PRN (17:54)
[2022-05-06] MEDS ORDERED: LORazepam 0.5 MG TAB PO PRN (17:54)
[2022-05-06] MEDS ORDERED: traMADol HCL 50 MG TABLET PO PRN (17:54)
[2022-05-06] MEDS ORDERED: CALCIUM CARBONATE 500 MG CHEWABLE TAB PO PRN (18:12)
[2022-05-06] MEDS: LACTATED RINGER'S 1,000 ML IV SCH (18:30)
--- NOTE | 2022-05-06 18:56 | Anesthesiology Progress Note ---
Date of Service May 06, 2022 Anesthesia Post Procedure Vital Signs Vital Signs: Temp Pulse Pulse Resp BP Pulse Ox O2 Del Method 05/06/22 18:27 36.6 C 90 16 100/60 99 Nasal Cannula 05/06/22 17:55 36.9 C 91 H 16 94/54 L 99 Nasal Cannula 05/06/22 17:35 36.7 C 81 16 115/62 96 Nasal Cannula 05/06/22 17:25 85 14 126/67 92 Nasal Cannula 05/06/22 17:15 83 16 128/75 96 Nasal Cannula 05/06/22 17:05 86 12 92/66 L 95 Nasal Cannula 05/06/22 16:55 82 20 113/58 L 95 Nasal Cannula 05/06/22 16:45 87 17 112/80 90 Room Air 05/06/22 16:35 91 H 18 104/62 96 Room Air 05/06/22 16:25 87 20 121/79 95 Room Air 05/06/22 16:15 100 H 27 H 138/101 H 98 Oxymask 05/06/22 16:05 80 17 126/91 100 Oxymask 05/06/22 15:57 36.4 C L 98 H 12 153/89 H 100 Oxymask 05/06/22 10:17 36.9 C 71 20 162/98 H 95 Room Air O2 Flow Rate 05/06/22 18:27 2 05/06/22 17:55 3 05/06/22 17:35 3 05/06/22 17:25 3 05/06/22 17:15 3 05/06/22 17:05 3 05/06/22 16:55 3 05/06/22 16:45 05/06/22 16:35 05/06/22 16:25 05/06/22 16:15 6 05/06/22 16:05 6 05/06/22 15:57 6 05/06/22 10:17 Pain Intensity Right Leg: Pain Intensity: 8 Back: Pain Intensity: 5 Transfer of Care Handoff Completed per policy Notes Mental Status: alert / awake / arousable and participated in evaluation Patient Amnestic to Procedure: Yes Nausea / Vomiting: adequately controlled Pain: adequately controlled Airway Patency, RR, SpO2: stable & adequate BP & HR: stable & adequate Hydration State: stable & adequate Anesthetic Complications: no major complications apparent and Pt Satisfied with anesthetic care
--- NOTE | 2022-05-06 19:01 | History & Physical Report ---
Date of Service May 06, 2022 Assessment & Plan (1) S/P spinal surgery: (2) Neurogenic claudication due to lumbar spinal stenosis: Plan: Post op day# 0 S/P L4-S1 decompression and fusion by Dr Montenegro [id number] -pain management per ortho -wound management per ortho -PT/OT as appropriate -DVT prophylaxis per ortho -incentive spirometry -monitor H&H for acute blood loss anemia; preop Hgb: 12 (3) Hypertension: Plan: - Hold lisinopril and reevaluate tomorrow (4) Hyperlipidemia: Plan: - Continue pravastatin (5) Acid reflux: Plan: - Continue PPI (6) Prediabetes: Plan: - Diabetic diet (7) Depression: Plan: - Continue sertraline, buspirone DVT Prophylaxis -SCDs per ortho Disposition per primary team Follows with Dr Kiya Lynch in [place] for routine care Pt was seen and care coordinated with Dr Gant. See addendum Thank you for this consultation. We will follow the patient with you during their hospital stay. You can reach a member of the [facility]ist Team 23/01 via [employer] Admission and Anticipated Discharge Date Admission Date: May 06, 2022 History of Present Illness Primary Care Provider: Vince Lynch Patient is 71-year-old female with PMH HTN, HLD, prediabetes, GERD, depression seen in medical consultation s/p L4-S1 decompression and fusion today by Dr. Montenegro. Postop patient reports some low back pain however is controlled at rest currently. Prior to surgery reports severe back pain and bilateral lower extremity pain, right greater than left with associated paresthesias. Currently reports denies leg pain or paresthesias. Reports last BM yesterday. Has Miles catheter in place. Drinking water without any nausea or vomiting postop. Denies fever/chills, diarrhea, ELIZONDO, dizziness, vision changes, neck pain, CP, SOB, palpitations, cough, sore throat, choking, rhinorrhea, abdominal pain, extremity edema, rashes, urinary symptoms. Allergies Allergy/AdvReac Type Severity Reaction Status Date / Time No Known Allergies Allergy Verified 05/06/22 10:12 Home Medications Medication Instructions Recorded Confirmed Type buspirone 15 mg tablet 15 mg PO QAM 11/17/21 05/06/22 History lisinopril 10 mg tablet 10 mg PO HS 11/17/21 05/06/22 History pantoprazole 40 mg granules 40 mg PO HS 11/17/21 05/06/22 History delayed-release for susp in packet pravastatin 20 mg tablet 20 mg PO HS 11/17/21 05/06/22 History sertraline 100 mg tablet (Zoloft) 100 mg PO QAM 11/17/21 05/06/22 History calcium carbonate 300 mg (750 mg) 300 mg PO DAILY PRN Acid Reflux 11/18/21 05/06/22 History chewable tablet (Tums) celecoxib 100 mg capsule 100 mg PO QAM 11/18/21 05/06/22 History multivitamin 1 tab PO HS 11/18/21 05/06/22 History turmeric root extract 500 mg 500 mg PO HS 11/18/21 05/06/22 History capsule vitamin B complex 1 tab PO HS 11/18/21 05/06/22 History zinc 50 mg tablet 50 mg PO HS 11/18/21 05/06/22 History oxycodone-acetaminophen 5 mg-325 1 tab PO Q6H PRN pain #60 tabs 02/02/22 05/06/22 Rx mg tablet (Percocet) gabapentin 300 mg tablet 300 mg PO TID 04/15/22 05/06/22 History Past Med/Surg History Medical History (Updated 05/06/22 @ 19:37 by Demetra Hurd PA-C) Acid reflux Borderline diabetes Diet control recommended Depression Severe (since daughter's ) History of basal cell carcinoma (BCC) of skin Face Hyperlipidemia Hypertension Hypothyroidism Obesity Osteoarthritis Thyroid nodule Tremor of both hands "Nerves" Surgical History (Updated 05/06/22 @ 19:35 by Demetra Hurd PA-C) History of basal cell carcinoma excision History of carpal tunnel surgery of left wrist History of right hip replacement Right ANDREY (12/20/21): SAB at L3-4 (x1 attempt) at [facility]. No issues noted per post-op anesthesia progress note. History of tonsillectomy S/P thyroid biopsy Family History Other No family history of adverse response to anesthesia Social History (Updated 05/06/22 @ 19:38 by Demetra Hurd PA-C) Smoking Status: Never smoker Second Hand Exposure: No; Do You Dip or Chew Tobacco: No; Tobacco Cessation Education Requested by Patient: No Hx Alcohol Use: Yes Alcohol type: beer Hx Substance Use: No Preferred Language: Kiswahili Communication Ability: Effective Passenger Service Representative Required: No Beliefs That Will Affect Care: None marital status: Unknown Current Living Situation: Family Current Living Situation Comment: LIVES W/ DAUGHTER AND GRAND CHILDREN Other Information That Helps Us Care for You: Yes (DISCUSS POSSIBLE PLACEMENT IN REHAB FACILITY @ D/C) Feels Safe at Home: Yes Safety Concerns: Feels Safe At This Time Assistive Devices: Cane and Walker Review of Systems Review of Systems: All systems reviewed & are unremarkable except as noted in HPI & below Physical Exam Physical Exam: General: no acute distress, overweight Head: normocephalic, atraumatic Eyes: conjunctiva non-injected, anicteric ENT: normal inspection external ears, nose, mucous membranes moist Neck: supple, trachea midline Lungs: clear, no respiratory distress, no wheezing/rhonchi/rales CV: RRR, no murmur, no pretibial edema Abd: normal BS, soft, non-tender Back: +JACKIE drain in place with serosanguineous drainage Ext: no cyanosis, no calf tenderness; pedal pushes and pulls intact bilaterally, distal pulses palpable Neuro: A&O x 3, no focal deficits noted, normal affect Skin: warm, dry Results & Data Results & Data ([facility]) Vital Signs (Past 12 Hours) Vital Signs Temp Pulse Pulse Resp BP Pulse Ox O2 Del Method 05/06/22 18:27 36.6 C 90 16 100/60 99 Nasal Cannula 05/06/22 17:55 36.9 C 91 H 16 94/54 L 99 Nasal Cannula 05/06/22 17:35 36.7 C 81 16 115/62 96 Nasal Cannula 05/06/22 17:25 85 14 126/67 92 Nasal Cannula 05/06/22 17:15 83 16 128/75 96 Nasal Cannula 05/06/22 17:05 86 12 92/66 L 95 Nasal Cannula 05/06/22 16:55 82 20 113/58 L 95 Nasal Cannula 05/06/22 16:45 87 17 112/80 90 Room Air 05/06/22 16:35 91 H 18 104/62 96 Room Air 05/06/22 16:25 87 20 121/79 95 Room Air 05/06/22 16:15 100 H 27 H 138/101 H 98 Oxymask 05/06/22 16:05 80 17 126/91 100 Oxymask 05/06/22 15:57 36.4 C L 98 H 12 153/89 H 100 Oxymask 05/06/22 10:17 36.9 C 71 20 162/98 H 95 Room Air O2 Flow Rate 05/06/22 18:27 2 05/06/22 17:55 3 05/06/22 17:35 3 05/06/22 17:25 3 05/06/22 17:15 3 05/06/22 17:05 3 05/06/22 16:55 3 05/06/22 16:45 05/06/22 16:35 05/06/22 16:25 05/06/22 16:15 6 05/06/22 16:05 6 05/06/22 15:57 6 05/06/22 10:17 Code Status & VTE Plan VTE Prophylaxis Plan VTE Prophylaxis will be ordered: Yes Supervising Physician Co-Signing Physician Notes I have seen and examined the patient and have discussed the case with the provider above. I agree with the assessment and plan as stated. 71 yo F s/p back surgery today. No symptoms aside from expected incisional pain. Oriented and denies nausea, tolerating food. Slight hypotension with BP 96/60. Agree with holding antihypertensive in am. Physical exam is unremarkable. No gross neurologic deficits. LE are NVI bilaterally. Surgical site not evaluated, drain in place. Cont plan as above. Thank you for this consultation. DO Stalin
[2022-05-06] MEDS: oxyCODONE HCL IR 5 MG TAB (IMMEDIATE RELEASE) PO PRN (20:49)
[2022-05-06] MEDS: ceFAZolin 2000MG 2,000 MG/15 ML SYR IV SCH (20:49)
[2022-05-06] MEDS: VITAMIN B COMPLEX TAB PO SCH (20:49)
[2022-05-06] MEDS: DOCUSATE SODIUM/SENNA 50/8.6MG TAB PO SCH (20:49)
[2022-05-06] MEDS: GABAPENTIN 300 MG CAP PO SCH (20:50)
[2022-05-06] MEDS: PRAVASTATIN SOD 20 MG TAB PO SCH (20:50)
[2022-05-06] MEDS: PANTOprazole 40 MG TAB PO SCH (20:50)
[2022-05-06] MEDS: MULTIVITAMIN TAB PO SCH (20:50)
[2022-05-06] MEDS ORDERED: lisinopril 10 MG TAB PO SCH (21:00)
[2022-05-07] MEDS: LACTATED RINGER'S 1,000 ML IV SCH ×2 (00:38→06:31)
[2022-05-07] MEDS: ceFAZolin 2000MG 2,000 MG/15 ML SYR IV SCH (05:51)
[2022-05-07] MEDS: POLYETHYLENE (MIRALAX) 17 GM PACK PO SCH ×3 (05:51→17:24)
[2022-05-07 07:48] LABS: Basophils # (auto) 0.02 K/uL (0-0.2); Basophils % (auto) 0.2 %; Hematocrit (blood only) 26.3 % (34.1-44.9); Hemoglobin 8.7 g/dl (12.0-16.0); Immature Granulocytes # (auto) 0.05 K/uL (0.00-0.02); Immature Granulocytes % (auto) 0.4 %; Lymphocytes # (auto) 0.65 K/uL (1.2-3.4); Lymphocytes % (auto) 5.5 %; Mean Corpuscular Hemoglobin 31.2 pg (25.0-34.0); Mean Corpuscular Hgb Conc 33.1 g/dL (32.0-36.0); Mean Corpuscular Volume 94.3 fL (80.0-100.0); Mean Platelet Volume 10.8 fL (9.4-12.3); Monocytes # (auto) 0.91 K/uL (0.24-0.82); Monocytes % (auto) 7.7 %; Neutrophils % (auto) 86.2 %; Platelet Count 192 K/uL (130-400); RDW Coefficient of Variation 13.7 % (11.5-14.5); RDW Standard Deviation 47.4 fL (36.4-46.3); Red Blood Count 2.79 M/uL (3.93-5.22); White Blood Count 11.83 K/ul (4.8-10.8)
[2022-05-07] MEDS: GABAPENTIN 300 MG CAP PO SCH ×3 (08:14→20:58)
[2022-05-07] MEDS: dexAMETHasone 6 MG in SYRINGE 0 ML IV SCH (08:14)
[2022-05-07] MEDS: SERTRALINE HCL 100 MG TABLET PO SCH (08:14)
[2022-05-07] MEDS: busPIRone 15 MG TAB PO SCH (08:14)
[2022-05-07 08:50] LABS: BUN Creatinine Ratio 19.3 (10-20); Calcium 8.7 mg/dl (8.5-10.1); Creatinine Clr Calc Pharmacy 106.5 ml/min; Est GFR (African American) 108.1 ml/min; Est GFR (Non-African American) 93.3 ml/min; Potassium 4.1 mmol/L (3.5-5.1)
--- NOTE | 2022-05-07 08:57 | Orthopedic Progress Note ---
Date of Service May 07, 2022 Assessment & Plan (1) Neurogenic claudication due to lumbar spinal stenosis: Plan: We will initiate physical therapy today monitor JACKIE output hopefully discharge on Monday. Admission and Anticipated Discharge Date Admission Date: May 06, 2022 Subjective Back pain controlled leg pain markedly improved Physical Exam Physical Exam: Patient is sitting up in bed. She is comfortable. Is present to testing. Results & Data ([facility]) Vital Signs (Past 12 Hours) Vital Signs Temp Pulse Resp BP Pulse Ox O2 Del Method O2 Flow Rate 05/07/22 08:12 101/54 L 05/07/22 07:43 36.6 C 67 12 93/54 L 91 Room Air 05/07/22 04:17 36.7 C 77 18 102/65 99 Nasal Cannula 2 05/07/22 00:02 95 Nasal Cannula 2 05/06/22 23:34 36.8 C 82 16 109/67 100 Nasal Cannula 4
[2022-05-07] MEDS: oxyCODONE HCL IR 5 MG TAB (IMMEDIATE RELEASE) PO PRN ×2 (09:50→20:57)
--- NOTE | 2022-05-07 12:05 | Hospitalist Progress Note ---
Date of Service May 07, 2022 Assessment & Plan (1) S/P spinal surgery: (2) Neurogenic claudication due to lumbar spinal stenosis: Plan: S/P L4-S1 decompression and fusion by Dr Montenegro on 05/06/22 Postoperative blood loss anemia Pain control, wound care, DVT prophylaxis per Ortho Continue incentive spirometry Continue PT OT Continue bowel regimen to prevent constipation Monitor CBC (3) Hypertension: Plan: Blood pressure stable Continue to hold lisinopril (4) Hyperlipidemia: Plan: - Continue pravastatin (5) Acid reflux: Plan: - Continue PPI (6) Prediabetes: Plan: - Diabetic diet (7) Depression: Plan: - Continue sertraline, buspirone DVT Prophylaxis -SCDs per ortho Disposition per primary team Follows with Dr Kiya Lynch in [place] for routine care Thank you for this consultation. We will follow the patient with you during their hospital stay. You can reach a member of [facility] via [employer] Admission and Anticipated Discharge Date Admission Date: May 06, 2022 Subjective Patient is seen and examined at bedside Complains of pain at surgical site worsens with movement " I didn't do well with PT today" Denies any chest pain, shortness breath, dizziness Admits to being nauseous earlier today but currently resolved No other complaints Review of Systems Review of Systems: All systems reviewed & are unremarkable except as noted in Subjective Physical Exam Physical Exam: Physical Exam: Vitals signs as noted above General Appearance:Moderately built and nourished, no apparent distress Head: normocephalic, Atraumatic Eyes: normal inspection, EOMI Neck: supple, Trachea midline Respiratory/Chest: Normal breath sounds, CTA, No accessory muscle use Cardiovascular: S1, S2, No murmur Abdomen/GI:Soft, Non tender, Bowel sounds present Back: Surgical site in dressing, +drain Extremities/Musculoskeletal:normal inspection, no edema Neurologic/Psych:AAOX3, grossly no focal neurological deficits Skin: normal color, warm Results & Data Results & Data ([facility]) Vital Signs (Past 12 Hours) Vital Signs Temp Pulse Resp BP Pulse Ox O2 Del Method O2 Flow Rate 05/07/22 11:06 36.9 C 79 16 117/65 92 Room Air 05/07/22 08:12 101/54 L 05/07/22 07:43 36.6 C 67 12 93/54 L 91 Room Air 11/05/22 04:17 36.7 C 77 18 102/65 99 Nasal Cannula 2 Laboratory Results Short CBC 05/07/22 Range/Units 07:04 WBC 11.83 H (4.8-10.8) K/ul Hgb 8.7 L (12.0-16.0) g/dl Hct 26.3 L (34.1-44.9) % Plt Count 192 (130-400) K/uL BMP 05/07/22 07:04 Sodium 139 Potassium 4.1 Chloride 105 Carbon Dioxide 30 BUN 11 Creatinine 0.57 L Glucose 131 H Calcium 8.7
[2022-05-07] MEDS: PANTOprazole 40 MG TAB PO SCH (20:58)
[2022-05-07] MEDS: MULTIVITAMIN TAB PO SCH (20:58)
[2022-05-07] MEDS: PRAVASTATIN SOD 20 MG TAB PO SCH (20:59)
[2022-05-07] MEDS: DOCUSATE SODIUM/SENNA 50/8.6MG TAB PO SCH (20:59)
[2022-05-07] MEDS: VITAMIN B COMPLEX TAB PO SCH (20:59)
[2022-05-08] MEDS: POLYETHYLENE (MIRALAX) 17 GM PACK PO SCH ×3 (01:15→12:38)
[2022-05-08] MEDS: oxyCODONE HCL IR 5 MG TAB (IMMEDIATE RELEASE) PO PRN ×2 (05:24→20:42)
[2022-05-08 06:15] LABS: Hematocrit (blood only) 25.7 % (34.1-44.9); Hemoglobin 8.2 g/dl (12.0-16.0); Mean Corpuscular Hemoglobin 30.6 pg (25.0-34.0); Mean Corpuscular Hgb Conc 31.9 g/dL (32.0-36.0); Mean Corpuscular Volume 95.9 fL (80.0-100.0); Mean Platelet Volume 10.8 fL (9.4-12.3); Platelet Count 175 K/uL (130-400); RDW Coefficient of Variation 13.8 % (11.5-14.5); Red Blood Count 2.68 M/uL (3.93-5.22); White Blood Count 10.17 K/ul (4.8-10.8)
[2022-05-08 06:43] LABS: BUN Creatinine Ratio 25.5 (10-20); Creatinine Clr Calc Pharmacy 110.4 ml/min; Est GFR (African American) 109.4 ml/min; Est GFR (Non-African American) 94.4 ml/min; Potassium 3.9 mmol/L (3.5-5.1)
[2022-05-08] MEDS: busPIRone 15 MG TAB PO SCH (08:17)
[2022-05-08] MEDS: SERTRALINE HCL 100 MG TABLET PO SCH (08:17)
[2022-05-08] MEDS: dexAMETHasone 6 MG in SYRINGE 0 ML IV SCH (08:17)
[2022-05-08] MEDS: GABAPENTIN 300 MG CAP PO SCH ×3 (08:17→20:41)
--- NOTE | 2022-05-08 09:53 | Orthopedic Progress Note ---
Date of Service May 08, 2022 Assessment & Plan (1) Neurogenic claudication due to lumbar spinal stenosis: Plan: We will continue physical therapy occupational therapy today. We will have her assessed for possible rehab placement early next week. Admission and Anticipated Discharge Date Admission Date: May 06, 2022 Subjective Patient's back pain is controlled leg symptoms markedly improved Physical Exam Physical Exam: Patient is currently in bed. He is comfortable. Is constricted testing. Results & Data ([facility]) Vital Signs (Past 12 Hours) Vital Signs Temp Pulse Resp BP Pulse Ox O2 Del Method 05/08/22 08:51 36.8 C 77 18 110/67 96 Room Air
--- NOTE | 2022-05-08 14:00 | Hospitalist Progress Note ---
Date of Service May 08, 2022 Assessment & Plan (1) S/P spinal surgery: (2) Neurogenic claudication due to lumbar spinal stenosis: Plan: S/P L4-S1 decompression and fusion by Dr Montenegro on 05/06/22 Postoperative blood loss anemia Pain control, wound care, DVT prophylaxis per Ortho Continue incentive spirometry Continue PT OT Continue bowel regimen to prevent constipation Monitor CBC Will need rehab placement (3) Hypertension: Plan: Blood pressure stable Continue to hold lisinopril (4) Hyperlipidemia: Plan: - Continue pravastatin (5) Acid reflux: Plan: - Continue PPI (6) Prediabetes: Plan: - Diabetic diet (7) Depression: Plan: - Continue sertraline, buspirone DVT Prophylaxis -SCDs per ortho Disposition per primary team Follows with Dr Kiya Lynch in [place] for routine care Thank you for this consultation. We will follow the patient with you during their hospital stay. You can reach a member of the [facility] Team 23/01 via [employer] Admission and Anticipated Discharge Date Admission Date: May 06, 2022 Subjective Patient is seen and examined at bedside Had physical therapy evaluation this morning Reports back pain with activity Denies any chest pain, shortness breath, dizziness Review of Systems Review of Systems: All systems reviewed & are unremarkable except as noted in Subjective Physical Exam Physical Exam: Physical Exam: Vitals signs as noted above General Appearance:Moderately built and nourished, no apparent distress Head: normocephalic, Atraumatic Eyes: normal inspection, EOMI Neck: supple, Trachea midline Respiratory/Chest: Normal breath sounds, CTA, No accessory muscle use Cardiovascular: S1, S2, No murmur Abdomen/GI:Soft, Non tender, Bowel sounds present Back: Surgical site in dressing, +drain Extremities/Musculoskeletal:normal inspection, no edema Neurologic/Psych:AAOX3, grossly no focal neurological deficits Skin: normal color, warm Results & Data Results & Data ([facility]) Vital Signs (Past 12 Hours) Vital Signs Temp Pulse Resp BP Pulse Ox O2 Del Method 05/08/22 08:51 36.8 C 77 18 110/67 96 Room Air Laboratory Results Short CBC 05/08/22 Range/Units 05:33 WBC 10.17 (4.8-10.8) K/ul Hgb 8.2 L (12.0-16.0) g/dl Hct 25.7 L (34.1-44.9) % Plt Count 175 (130-400) K/uL BMP 05/08/22 05:33 Sodium 140 Potassium 3.9 Chloride 104 Carbon Dioxide 32 BUN 14 Creatinine 0.55 L Glucose 110 H Calcium 9.0
[2022-05-08] MEDS: PANTOprazole 40 MG TAB PO SCH (20:42)
[2022-05-08] MEDS: DOCUSATE SODIUM/SENNA 50/8.6MG TAB PO SCH (20:42)
[2022-05-08] MEDS: MULTIVITAMIN TAB PO SCH (20:42)
[2022-05-08] MEDS: VITAMIN B COMPLEX TAB PO SCH (20:42)
[2022-05-08] MEDS: PRAVASTATIN SOD 20 MG TAB PO SCH (20:43)
[2022-05-09] MEDS: oxyCODONE HCL IR 5 MG TAB (IMMEDIATE RELEASE) PO PRN ×3 (06:27→19:56)
[2022-05-09 07:15] LABS: Estimated Average Glucose 128 mg/dl; Hemoglobin A1C 6.1 % (4.5-5.6)
[2022-05-09 07:40] LABS: Hematocrit (blood only) 24.3 % (34.1-44.9); Hemoglobin 7.9 g/dl (12.0-16.0); Mean Corpuscular Hemoglobin 30.6 pg (25.0-34.0); Mean Corpuscular Hgb Conc 32.5 g/dL (32.0-36.0); Mean Corpuscular Volume 94.2 fL (80.0-100.0); Mean Platelet Volume 10.7 fL (9.4-12.3); Platelet Count 184 K/uL (130-400); RDW Coefficient of Variation 13.9 % (11.5-14.5); RDW Standard Deviation 47.4 fL (36.4-46.3); Red Blood Count 2.58 M/uL (3.93-5.22); White Blood Count 10.51 K/ul (4.8-10.8)
[2022-05-09 08:04] LABS: BUN Creatinine Ratio 24.6 (10-20); Calcium 9.2 mg/dl (8.5-10.1); Creatinine Clr Calc Pharmacy 106.5 ml/min; Est GFR (African American) 108.1 ml/min; Est GFR (Non-African American) 93.3 ml/min; Potassium 3.9 mmol/L (3.5-5.1)
[2022-05-09] MEDS: SERTRALINE HCL 100 MG TABLET PO SCH (08:48)
[2022-05-09] MEDS: dexAMETHasone 6 MG in SYRINGE 0 ML IV SCH (08:48)
[2022-05-09] MEDS: GABAPENTIN 300 MG CAP PO SCH ×3 (08:48→20:56)
[2022-05-09] MEDS: busPIRone 15 MG TAB PO SCH (08:48)
--- NOTE | 2022-05-09 11:11 | Orthopedic Progress Note ---
Date of Service May 09, 2022 Assessment & Plan (1) Neurogenic claudication due to lumbar spinal stenosis: Plan: At this time we will continue physical therapy and anticipate discharge to rehab either today or tomorrow whenever beds available. Admission and Anticipated Discharge Date Admission Date: May 06, 2022 Subjective Patient's back pain is controlled leg symptoms improved Physical Exam Physical Exam: Patient is in the chair at the bedside. She is comfortable. Is constricted testing. Results & Data ([facility]) Vital Signs (Past 12 Hours) Vital Signs Temp Pulse Resp BP Pulse Ox O2 Del Method 05/09/22 07:51 37.3 C 62 16 140/82 95 Room Air
--- NOTE | 2022-05-09 12:27 | Hospitalist Progress Note ---
Date of Service May 09, 2022 Assessment & Plan (1) S/P spinal surgery: (2) Neurogenic claudication due to lumbar spinal stenosis: Plan: S/P L4-S1 decompression and fusion by Dr Montenegro on 05/06/22 Postoperative blood loss anemia Pain control, wound care, DVT prophylaxis per Ortho Continue incentive spirometry Continue PT OT Continue bowel regimen to prevent constipation Monitor CBC Waiting for Rehab placement (3) Hypertension: Plan: Blood pressure slightly elevated Resume lisinopril (4) Hyperlipidemia: Plan: - Continue pravastatin (5) Acid reflux: Plan: - Continue PPI (6) Prediabetes: Plan: - Diabetic diet (7) Depression: Plan: - Continue sertraline, buspirone DVT Prophylaxis -SCDs per ortho Disposition per primary team Advised to follow-up with PCP upon discharge Follows with Dr Kiya Lynch in [place] for routine care Thank you for this consultation. We will follow the patient with you during their hospital stay. You can reach a member of the [facility] Team 23/01 via [employer] Admission and Anticipated Discharge Date Admission Date: May 06, 2022 Subjective Patient is seen and examined at bedside Leg neuropathic pain, urinary incontinence resolved as per patient Doing well with PT Back pain is better when compared to yesterday No new complaints Denies any chest pain, shortness breath, dizziness Review of Systems Review of Systems: All systems reviewed & are unremarkable except as noted in Subjective Physical Exam Physical Exam: Physical Exam: Vitals signs as noted above General Appearance:Moderately built and nourished, no apparent distress Head: normocephalic, Atraumatic Eyes: normal inspection, EOMI Neck: supple, Trachea midline Respiratory/Chest: Normal breath sounds, CTA, No accessory muscle use Cardiovascular: S1, S2, No murmur Abdomen/GI:Soft, Non tender, Bowel sounds present Back: Surgical site in dressing, +drain Extremities/Musculoskeletal:normal inspection, no edema Neurologic/Psych:AAOX3, grossly no focal neurological deficits Skin: normal color, warm Results & Data Results & Data ([facility]) Vital Signs (Past 12 Hours) Vital Signs Temp Pulse Resp BP Pulse Ox O2 Del Method 05/09/22 11:30 37.0 C 68 17 142/76 H 95 Room Air 05/09/22 07:51 37.3 C 62 16 140/82 95 Room Air Laboratory Results Short CBC 05/09/22 Range/Units 06:18 WBC 10.51 (4.8-10.8) K/ul Hgb 7.9 L (12.0-16.0) g/dl Hct 24.3 L (34.1-44.9) % Plt Count 184 (130-400) K/uL BMP 05/09/22 06:18 Sodium 140 Potassium 3.9 Chloride 104 Carbon Dioxide 32 BUN 14 Creatinine 0.57 L Glucose 96 Calcium 9.2
[2022-05-09] MEDS: DOCUSATE SODIUM/SENNA 50/8.6MG TAB PO SCH (20:55)
[2022-05-09] MEDS: PANTOprazole 40 MG TAB PO SCH (20:56)
[2022-05-09] MEDS: MULTIVITAMIN TAB PO SCH (20:56)
[2022-05-09] MEDS: PRAVASTATIN SOD 20 MG TAB PO SCH (20:56)
[2022-05-09] MEDS: VITAMIN B COMPLEX TAB PO SCH (20:56)
[2022-05-10] MEDS: oxyCODONE HCL IR 5 MG TAB (IMMEDIATE RELEASE) PO PRN ×2 (05:36→11:22)
--- NOTE | 2022-05-10 08:22 | Discharge Summary ---
Date of Service May 10, 2022 Admission HPI Per Admitting Provider Patient is 71-year-old female with PMH HTN, HLD, prediabetes, GERD, depression seen in medical consultation s/p L4-S1 decompression and fusion today by Dr. Montenegro. Postop patient reports some low back pain however is controlled at rest currently. Prior to surgery reports severe back pain and bilateral lower extremity pain, right greater than left with associated paresthesias. Currently reports denies leg pain or paresthesias. Reports last BM yesterday. Has Miles catheter in place. Drinking water without any nausea or vomiting postop. Denies fever/chills, diarrhea, ELIZONDO, dizziness, vision changes, neck pain, CP, SOB, palpitations, cough, sore throat, choking, rhinorrhea, abdominal pain, extremity edema, rashes, urinary symptoms. Principal Diagnosis Lumbar spinal stenosis with neurogenic claudication Discharge Data Allergies Allergy/AdvReac Type Severity Reaction Status Date / Time No Known Allergies Allergy Verified 05/06/22 10:12 Consultations 05/06/22 17:54 Consult Hospitalist Routine Procedures Performed Operation Date: 05/06/22 11:05 Actual Procedures p L3-S1 Decompression and Fusion, Spinal Cord Monitoring(Not Applicable) - Vince Montenegro DO Ordered Studies 05/06/22 11:05 FL lumbar spine 2-3V Routine Hospital Course (1) Neurogenic claudication due to lumbar spinal stenosis: Patient with lumbar decompression fusion tolerated this well was taken to orthopedic for postoperative. Postop day 1 she was up and ambulating progressed appropriately through postop day 2 and 3 socially discharged on postop day #3 to rehab. Discharge orders instructions from the chart for further review. Total Time Total Time Spent Total Time Spent (In Minutes): 20 minutes Discharge Plan Discharge Items Patient Disposition: Transfer Inpatient Rehab Fac Reason For Visit: Intervertebral Disc Disorders with Radiculopathy, Discharge Diagnosis: Lumbar spinal stenosis with spondylolisthesis and radiculopathy Activity: As commented below Non-emergency contact: Primary Care Provider Call non-emergency contact if: you have any medication questions Follow-up/Referrals: Vince Lynch DO [Primary Care Provider] - Diet: Regular Addtl Attending Provider Instructions: ACTIVITY RECOMMENDATIONS: SELF CARE INSTRUCTIONS AFTER THORACIC/LUMBAR FUSIONS 1. You may walk to your tolerance. It is good exercise for your legs and back. Expect some back and intermittent leg aches and pains. 2. You may perform "counter-top" level activities (make a sandwich, nestor with a project, etc.). 3. No bending or lifting of more than 10 pounds or back twisting of any nature (roll like a log when turning in bed). 4. You may ride in a car for 20-30 minutes at a time. No driving until after your first visit with your doctor. 5. Frequent changes of position and restricting sitting to 30 minutes at a time will help limit the amount of back spasms and stiffness you may experience. 6. You may discontinue the use of ambulatory aids (cane, crutches, etc.) once your strength and confidence allow. 7. You may gin operator the shower and let water strike your incision when you arrive home at least once daily. Do not take a tub bath, sit in a hot tub or go into a swimming pool until after your first recheck in the office. SPECIAL CARE INSTRUCTIONS: VERY IMPORTANT TO READ AND REVIEW A. Your surgical incision has been closed with a cosmetic suture under the skin that will dissolve in about 6 weeks. In 14 days, you can use a pair of clean scissors and cut the suture that is left outside of the skin at the ends of your incision. 1. The small skin tapes can be removed 7 days after surgery if they have not fallen off by that point. 2. You may keep the wound open to air as much as possible to promote healing after post-op day number 5 unless told otherwise by your doctor. 3. If you think the wound looks like it is becoming infected (redness or worsening drainage) and/or you are experiencing fever, chill or worsening back pain and muscle spasms, contact the office so that we may evaluate you as soon as possible. B. Complications are uncommon, but please contact us if you have any signs or symptoms of: 1. wound infection (fever higher than 102.5 degrees F, redness, separation of wound, drainage, or increasing pain from the incision) 2. blood clots in legs (pain, swelling, redness and warmth in legs) 3. urinary tract infection (fever higher than 102.5 degrees F, burning upon urination or increased frequency of urination) 4. nerve problems (inability to walk on your toes or heels, numbness, loss of bowel or bladder control) 5. any other symptoms that concern you C. Please call the office at if you have any concerns or questions about your operation or recovery. D. No smoking! Smoking drastically decreases the chance of a solid fusion. E. Do not take any anti-inflammatory medications (Indocin, Advil, Motrin, Aspirin, Naprosyn, etc.) as these may inhibit the chance of a solid fusion. Tylenol is okay to take for pain. MANAGING PAIN AFTER SPINAL SURGERY 1. Narcotic medication is intended for short-term use and will be provided for surgical pain. Surgical pain usually lasts for a period of 4-6 weeks. Narcotic medication includes Percocet, Vicodin, Darvocet, Tylenol #3 or Lortab. 2. Longer-term pain is more appropriately treated with non-narcotic medication such as Tylenol ES. 3. Muscle spasm is not appropriately treated with narcotics. Muscle relaxers such as Soma, Flexeril or Skelaxin can be used along with Tylenol ES. 4. Remember that we all live with some "aches and pains". This is not unusual or uncommon after an injury or as we get older. a. Back pain is expected and may include muscle spasms for 4 to 6 weeks after surgery. The pain should gradually improve. If the pain worsens for no apparent reason, please contact the office. b. Intermittent leg pain may also be experienced and should not be concerned about unless it worsens for no apparent reason. If so, please contact the office. 5. We will provide appropriate medication within the normal guidelines of their prescribed use. We will also be very cautious and aware of potential abuse and extended duration of patients' medication needs. a. Pain medications are for your comfort and to assist with sleep and rest so that the tissue can heal. They are not provided in order to return to normal activity and should not be used through the day. To do so or worsening pain at night can result from ongoing tissue damage and development of tolerance to the prescribed medicine. 6. Please allow 2-3 days to process refills. Prescriptions will not be mailed but must be picked up at the office. FOLLOW UP VISIT: Keep your scheduled follow-up appointment. Any questions, please call the office at . Pending Studies at Discharge: No Stand-Alone Forms: [facility], Smoking Cessation Skilled Items Patient informed of condition?: Yes DNR: No Discharge Level of Care: Acute rehab Communicable Disease: No Discharge Prognosis: Improving Lines: None Urinary Catheter: No Medications and DC Order Prescriptions: New tramadol 50 mg tablet 50 mg PO Q6H PRN (Reason: pain, moderate) Qty: 30 0RF oxycodone 5 mg tablet 5 mg PO Q6H PRN (Reason: pain, severe) Qty: 30 0RF Continued pantoprazole [address] for susp in packet 40 mg PO HS pravastatin 20 mg tablet 20 mg PO HS lisinopril 10 mg tablet 10 mg PO HS sertraline [Zoloft] 100 mg tablet 100 mg PO QAM buspirone 15 mg tablet 15 mg PO QAM oxycodone-acetaminophen [Percocet] 5-325 mg tablet 1 tab PO Q6H PRN (Reason: pain) Qty: 60 0RF gabapentin 300 mg Tablet 300 mg PO TID celecoxib 100 mg Capsule 100 mg PO QAM multivitamin Tablet 1 tab PO HS vitamin B complex Tablet 1 tab PO HS zinc 50 mg Tablet 50 mg PO HS turmeric root extract 500 mg Capsule 500 mg PO HS calcium carbonate [Tums] 300 mg (750 mg) Tablet,Chewable 300 mg PO DAILY PRN (Reason: Acid Reflux) Discharge Orders: Discharge Order (Routine); Ordered 05/09/22 Ordered By: Vince Alonzo/Other Patient Handouts: A1C Admission Data Admit Date/Time: 05/06/22 15:43 Attending Provider: Vince Montenegro Admit Provider: Vince Montenegro Primary Care Provider: Vince Lynch Other Providers: Bijal Gant ; John Weeks ; [facility]
[2022-05-10] MEDS: GABAPENTIN 300 MG CAP PO SCH (08:30)
[2022-05-10] MEDS: SERTRALINE HCL 100 MG TABLET PO SCH (08:30)
[2022-05-10] MEDS: busPIRone 15 MG TAB PO SCH (08:30)
--- NOTE | 2022-05-10 12:12 | Hospitalist Progress Note ---
Date of Service May 10, 2022 Assessment & Plan (1) S/P spinal surgery: (2) Neurogenic claudication due to lumbar spinal stenosis: Plan: S/P L4-S1 decompression and fusion by Dr Montenegro on 05/06/22 Postoperative blood loss anemia Pain control, wound care, DVT prophylaxis per Ortho Continue incentive spirometry Continue PT OT Continue bowel regimen to prevent constipation Monitor CBC Plan to be discharged to Rehab today Advised to follow up with PCP upon discharge from Rehab (3) Hypertension: Plan: Blood pressure slightly elevated likely due to pain Continue lisinopril (4) Hyperlipidemia: Plan: - Continue pravastatin (5) Acid reflux: Plan: - Continue PPI (6) Prediabetes: Plan: - Diabetic diet (7) Depression: Plan: - Continue sertraline, buspirone DVT Prophylaxis -SCDs per ortho Disposition per primary team Advised to follow-up with PCP upon discharge Follows with Dr Kiya Lynch in [place] for routine care Thank you for this consultation. We will follow the patient with you during their hospital stay. You can reach a member of the [facility] Hospitalist Team 23/01 via [employer] Admission and Anticipated Discharge Date Admission Date: May 06, 2022 Subjective Patient is seen and examined at bedside Ambulating with walker assistance this morning Reports nausea but no vomiting Back pain is controlled Denies any chest pain, shortness breath, dizziness Review of Systems Review of Systems: All systems reviewed & are unremarkable except as noted in Subjective Physical Exam Physical Exam: Physical Exam: Vitals signs as noted above General Appearance:Moderately built and nourished, no apparent distress Head: normocephalic, Atraumatic Eyes: normal inspection, EOMI Neck: supple, Trachea midline Respiratory/Chest: Normal breath sounds, CTA, No accessory muscle use Cardiovascular: S1, S2, No murmur Abdomen/GI:Soft, Non tender, Bowel sounds present Back: Surgical site in dressing Extremities/Musculoskeletal:normal inspection, no edema Neurologic/Psych:AAOX3, grossly no focal neurological deficits Skin: normal color, warm Results & Data Results & Data ([facility]) Vital Signs (Past 12 Hours) Vital Signs Temp Pulse Pulse Pulse Resp BP BP 05/10/22 11:10 36.9 C 68 58 L 69 18 116/69 142/76 H 05/10/22 07:45 36.9 C 05/10/22 07:36 58 L 18 116/69 Pulse Ox O2 Del Method 05/10/22 11:10 98 05/10/22 07:45 05/10/22 07:36 98 Room Air
== END 2022-05-10 13:56 | DRG 454 ==
LOC: ASU 09:46 → 3E 15:43